=== PATIENT | male | born 1950 | race Caucasian/White ===

== ENCOUNTER → 2020-04-22 08:52 | Outpatient (CLI) | payer MEDICARE, SELFPAY ==
--- NOTE | ~2020-04-22 | XR_ITS ---
EXAMINATION: XR lumbar spine 2-3V DATE: 04/22/2020 09:29 INDICATION: Lumbar radiculopathy. TECHNIQUE: 3 views of lumbar spine were obtained. COMPARISON: Lumbar spine radiographs 02/13/2018 FINDINGS: There is 4 degrees dextrocurvature of lumbar spine. There is 3 mm anterolisthesis of L5 on S1. Vertebral body heights are normal. There is mildly decreased disc height at L2-L3. There is multi level mild facet joint osteoarthritis. IMPRESSION: 1. Mild lumbar spondylosis. Reviewed, dictated and finalized at location A. IMPRESSION: 1. Mild lumbar spondylosis.
== END ==
PROVIDERS: PCP Family Medicine; Visit Provider Physician Assistant
DX: M47.26 Other spondylosis with radiculopathy, lumbar region (principal)
CPT/HCPCS: 72100

== ENCOUNTER 2020-09-22 11:24 | Observation (INO) | payer MEDICARE, SELFPAY ==
[2020-09-22] VITALS (20 sets, daily range): BP systolic 124–182; BP diastolic 56–92; PULSE 68–92; RESP 12–20; TEMP 36.1–37.2; O2SAT 96–100; BMI 33.1
--- NOTE | ~2020-09-22 | XR_ITS ---
EXAMINATION: XR ankle RT min 3V INDICATION: Right ankle pain, initial encounter TECHNIQUE: Three views of the right ankle are obtained. COMPARISON: None available FINDINGS: There is an acute, traumatic, closed, oblique fracture of the distal fibula which extends t o the level of the tibial plafond. There is a fracture of the posterior malleolus of the distal tibia . There is dorsal subluxation of the talus relative to the distal tibia. Ankle soft tissue swelling i s present. There is calcified atherosclerosis. IMPRESSION: 1. Fractures of the medial malleolus and posterior malleolus of the tibia with dorsal subluxation of the talus relative to the distal tibia. Reviewed, dictated and finalized at location A. CH STRATEGIST
--- NOTE | ~2020-09-22 | XR_ITS ---
XR ankle RT 2V DATE: 09/22/2020 12:59 INDICATION: Postoperative reduction examination TECHNIQUE: 2 views COMPARISON: 09/22/2020 right ankle FINDINGS: There is a trimalleolar fracture of the ankle. The posterior subluxation at the tibiotalar joint is reduced. There is approximately 2 mm superior displacement of the posterior malleolar fracture fragment. There is approximately 1-2 cortical widths posterior displacement at the lateral malleolar fracture. There is approximately 2 mm lateral displacement at the medial malleolar fracture. IMPRESSION: Trimalleolar fracture; reduction of posterior subluxation at tibiotalar joint Reviewed, dictated and finalized at location B. OISOTOPE PRODUCTION OPERATOR IMPRESSION: Trimalleolar fracture; reduction of posterior subluxation at tibiot alar joint
--- NOTE | ~2020-09-22 | XR_ITS ---
EXAMINATION: XR surgery orthopedic EXAM DATE: 09/22/2020 19:52 INDICATION: ORIF right ankle fracture. TECHNIQUE: Fluoroscopy used during XR surgery orthopedic performed by Dr. Joseph Camargo MD. The DAP for this procedure was 0.12 mGym2. FINDINGS: There is a fibular plate bridging a fracture in anatomic alignment. There is a medial mall eolar screw. Mortise relationship appears intact. Correlate with procedure note. IMPRESSION: Fluoroscopy used during right ankle ORIF. Reviewed, dictated and finalized at location G. L CANS SUPERVISOR
--- NOTE | ~2020-09-22 | XR_ITS ---
EXAMINATION: XR chest 1V portable INDICATION: Hypertension TECHNIQUE: Portable AP chest at 1336 hours COMPARISON: 05/30/2009 FINDINGS: The lungs are free of acute opacities. There is no pleural effusion or pneumothorax. The ca rdiomediastinal silhouette is normal. IMPRESSION: 1. No acute cardiopulmonary abnormality. Reviewed, dictated and finalized at location A. L PRESS SET UP OPERATOR RADIAL
--- NOTE | ~2020-09-22 | CT_ITS ---
EXAMINATION: CT ankle RT wo con DATE: 09/22/2020 13:48 INDICATION: Right ankle fracture and pain TECHNIQUE: Computed tomography (CT) of the right ankle was performed without intravenous contrast. Th e dose-length product (DLP) was 431.83 mGy-cm. Automated exposure control and iterative reconstructio n technique were employed. COMPARISON: None FINDINGS: There is a mildly comminuted oblique fracture of the distal fibula which extends to the lev el of the tibial plafond and. There are 4 mm of posterior displacement of the largest distal fracture fragment. There is a transverse fracture of the medial malleolus at the level of the tibial plafond and with up to 3 mm of distraction of the fracture fragment. There is a comminuted posterior malleolu s fracture of the distal tibia. A posterior splint is in place and alignment is near-anatomic. There is soft tissue swelling of ankle. No additional acute osseous findings are evident. Calcified atheros clerosis is noted. IMPRESSION: 1. Trimalleolar fracture, splinted and reduced. Reviewed, dictated and finalized at location A. IN[employer] WORKER
--- NOTE | 2020-09-22 11:34 | ED.GENADULT ---
HPI - General Adult General Chief complaint: Extremity Injury, Lower Stated complaint: Ankle deformity Source: patient Mode of arrival: EMS History of Present Illness HPI narrative: Patient is a 70 y/o male complaining of right ankle pain after a fall. He states that he had snow on his boots and slipped inside an RV. He describes his pain as sharp and rates it as 3/10. Movement worsens the pain. There is no pain radiation. He denies hitting his head or having any other injury. He has no headache, neck pain, back pain, chest pain or abdominal pain. Related Data Home Medications Medication Instructions Recorded Confirmed aspirin 81 mg tablet,delayed 81 mg PO DAILY 07/16/19 09/22/20 release sildenafil 25 mg tablet 25 mg PO DAILY 07/16/19 09/22/20 insulin lispro 100 unit/mL 1 sliding scale dose SUB-Q 01/25/20 07/01/20 subcutaneous solution USEASDIRECTD loratadine 10 mg tablet 10 mg PO DAILY 01/25/20 09/22/20 multivitamin 1 tablet PO DAILY 01/25/20 09/22/20 fenofibrate 160 mg tablet 160 mg PO DAILY 07/01/20 09/22/20 levothyroxine 50 mcg PO DAILY 09/22/20 09/22/20 lisinopril 40 mg PO DAILY 09/22/20 09/22/20 Allergies Allergy/AdvReac Type Severity Reaction Status Date / Time codeine Allergy Severe ANAPHALACTI Verified 09/22/20 14:39 C levofloxacin Allergy Severe ITCHING, Verified 09/22/20 14:39 THROAT CLOSING Tetanus Vaccines and Toxoid Allergy Intermediate Swelling Verified 09/22/20 14:39 TOBREX EYE DROP Allergy Unknown REDNESS, Uncoded 09/22/20 14:39 IRRITATION Review of Systems Constitutional: Constitutional: Denies chills, Denies fever(s), Denies headache(s) and Denies weakness Eyes: Eyes: Denies blurry vision ENT: Denies headache(s) and Denies neck pain Cardiovascular: Cardiovascular: Denies chest pain and Denies dyspnea Respiratory: Respiratory: Denies cough and Denies dyspnea Gastrointestinal: Gastrointestinal: Denies abdominal pain, Denies diarrhea, Denies nausea and Denies vomiting Genitourinary: Genitourinary: Denies hematuria and Denies dysuria Musculoskeletal: Musculoskeletal: Denies back pain, Reports arthralgias (right ankle pain) and Denies neck pain Neurologic: Denies headache(s) and Denies weakness [facility] Past Medical History Medical History Alcohol use 2 drinks/month Arthritis Back pain Diabetes Former smoker HLD (hyperlipidemia) Hypoglycemia Hypothyroid Insulin pump in place Type 2 diabetes mellitus with diabetic autonomic neuropathy, with long-term current use of insulin UTI (urinary tract infection) Surgical History Surgical History H/O vasectomy History of appendectomy History of tonsillectomy Family History Family History Father Diabetes mellitus Hypertension Family history of cardiovascular disease Malignant neoplasm of prostate Mother Hypertension Family history of kidney disease Grandparent Malignant neoplasm of prostate Other Family history of elevated blood lipids Family history of malignant neoplasm of kidney Social History Social History Smoking status: Former smoker Alcohol intake: current Gender identity (if verbalized by the patient): Male Exam Const: General: no acute distress and well developed Orientation/consciousness: oriented to person, oriented to place, oriented to time and patient oriented x3 HENMT: Head: normocephalic Ears: external ears normal General nose exam: Normal external nose present Eyes: General: appearance normal, both eyes and all related structures Conjunctivae: conjunctivae normal Neck: Neck: normal visual inspection and full ROM Chest: Chest palpation & inspection: normal inspection of the chest and no tenderness Resp: Effort & Inspection: normal respiratory effort
[2020-09-22] MEDS: PROPOFOL IV EMULSION 200 MG/20 ML VIAL (12:41)
--- NOTE | 2020-09-22 12:41 | PC.NURSE ---
Pt given 50 Propofol at 1241 per EDP at bedside VORB Dr Angelo.
[2020-09-22] MEDS: SODIUM CHLORIDE 0.9% IV 1,000 ML 999 ML (12:49)
--- NOTE | 2020-09-22 13:22 | ECG_ITS ---
Measurements Intervals [place] Rate: 65 P: 50 NH: 159 QRS: -18 QRSD: 146 T: 17 QT: 420 QTc: 437 Interpretive Statements SINUS RHYTHM RIGHT BUNDLE BRANCH BLOCK ABNORMAL ECG Electronically Signed On 09-22-2020 14:15:19 CONSTRUCTION PIT WORKER by Henrique Meehan D.O.
--- NOTE | 2020-09-22 14:03 | WPDANESEPP ---
Anes - Eval Pre Procedure Procedure: Operation Date: 09/22/20 15:00 Proposed Procedures p Open Reduction Internal Fixation Right Ankle Fracture - Joseph Camargo MD Date/Time: 09/22/20 14:03 Pre Op Diagnosis: Ankle deformity Patient Data Age: 70 Gender: M Height: 1.75 m Weight: 97 kg Last Vital Signs Temp 36.4 C L 09/22/20 11:23 Pulse 78 09/22/20 13:54 Resp 13 09/22/20 13:54 BP 174/75 H 09/22/20 13:54 Pulse Ox 99 09/22/20 13:54 Allergies Allergy/AdvReac Type Severity Reaction Status Date / Time codeine Allergy Severe ANAPHALACTI Verified 09/22/20 11:46 C levofloxacin Allergy Severe ITCHING, Verified 09/22/20 11:46 THROAT CLOSING Tetanus Vaccines and Toxoid Allergy Unknown Unknown Verified 09/22/20 11:46 TOBREX EYE DROP Allergy Unknown REDNESS, Uncoded 09/22/20 11:46 IRRITATION Home Medications Medication Instructions Recorded Confirmed Type aspirin 81 mg tablet,delayed 81 mg PO DAILY 07/16/19 07/01/20 History release sildenafil 25 mg tablet 25 mg PO DAILY 07/16/19 07/01/20 History insulin lispro 100 unit/mL 1 sliding scale dose SUB-Q 01/25/20 07/01/20 History subcutaneous solution USEASDIRECTD loratadine 10 mg tablet 10 mg PO DAILY 01/25/20 07/01/20 History multivitamin 1 tablet PO DAILY 01/25/20 07/01/20 History rosuvastatin 20 mg tablet 20 mg PO DAILY #90 tablet 01/25/20 07/01/20 Rx naproxen 500 mg tablet 500 mg PO BID #60 tablet 04/21/20 07/01/20 Rx levothyroxine 50 mcg tablet See Rx Instructions .ROUTE 06/19/20 07/01/20 Rx .COMPLEX #90 tablet lisinopril 40 mg tablet See Rx Instructions .ROUTE 06/19/20 07/01/20 Rx .COMPLEX #90 tablet triamterene 37.5 See Rx Instructions .ROUTE 06/19/20 07/01/20 Rx mg-hydrochlorothiazide 25 mg tablet .COMPLEX #90 tablet fenofibrate 160 mg tablet 160 mg PO DAILY 11/24/20 11/24/20 History Patient hx anesthesia problems: none Family hx anesthesia problems: none [facility] Past Medical History Medical History Alcohol use 2 drinks/month Arthritis Back pain Diabetes Former smoker HLD (hyperlipidemia) Hypoglycemia Hypothyroid Insulin pump in place Type 2 diabetes mellitus with diabetic autonomic neuropathy, with long-term current use of insulin UTI (urinary tract infection) Surgical History Surgical History H/O vasectomy History of appendectomy History of tonsillectomy Family History Family History Father Diabetes mellitus Hypertension Family history of cardiovascular disease Malignant neoplasm of prostate Mother Hypertension Family history of kidney disease Grandparent Malignant neoplasm of prostate Other Family history of elevated blood lipids Family history of malignant neoplasm of kidney Social History Social History Smoking status: Former smoker Alcohol intake: current Exam Day of Procedure 09/22/20 14:03
--- NOTE | 2020-09-22 14:08 | PC.NURSE ---
Speaking with OR about this patient
[2020-09-22 14:13] LABS: Basophils Percent Auto 0.3 % (0.2-1.2); Eosinophils Absolute Auto 0.1 K/mm3 (0-0.3); Eosinophils Percent Auto 0.8 % (0-4.4); Hematocrit 43.3 % (42.0-52.0); Hemoglobin 14.5 g/dL (14.0-18.0); Immature Granulocyte Absolute 0.02 K/mm3 (0.00-0.031); Immature Granulocyte Percent A 0.2 % (0-0.5); Lymphocytes Absolute Auto 1.35 K/mm3 (0.9-3.2); Mean Corpuscular HGB Conc 33.5 g/dl (32-36); Mean Corpuscular Hemoglobin 29.7 pg (26-34); Mean Corpuscular Volume 88.5 fl (80-100); Mean Platelet Volume 9.2 fl (7.4-10.4); Monocytes Absolute Auto 0.6 K/mm3 (0.1-0.6); Monocytes Percent Auto 6.2 % (2.6-8.5); Neutrophils Percent Auto 77.5 % (45.5-73.1); Platelet Count Result 214 k/mm3 (150-375); Red Blood Count 4.89 M/mm3 (4.6-6.20); Red Cell Distribution Width 13.7 % (11.5-14.5)
[2020-09-22 14:23] LABS: Prothrombin Time 13.4 Seconds (11.1-14.7)
[2020-09-22 14:24] LABS: Partial Thromboplastin Time 29.5 SECONDS (22.3-36.8)
[2020-09-22 14:25] LABS: Alanine Aminotransferase 52 U/L (4-50); Albumin Level 4.2 g/dL (3.5-5.1); Alkaline Phosphatase 53 U/L (38-126); Anion Gap 4 mmol/L (8-16); Aspartate Amino Transferase 47 U/L (17-59); Bilirubin,Total 0.7 mg/dL (0.2-1.3); Blood Urea Nitrogen 34 mg/dL (9-20); Calcium 9.4 mg/dL (8.4-10.2); Carbon Dioxide 29 mmol/L (22-30); Chloride 107 mmol/L (98-107); Estimated CRCL calculation 66 ml/min; Estimated Glomerular Filt Rate > 60; Glucose 80 mg/dL (75-110); Potassium 3.9 mmol/L (3.4-5.0); Sodium 140 mmol/L (137-145)
[2020-09-22] MEDS: LACTATED RINGERS 1,000 ML 30 ML IV CONT ×2 (14:56→20:10)
--- NOTE | 2020-09-22 16:35 | P.PNAN_ITS ---
Anes - Eval Final PreProcedure Day of Procedure 09/22/20 16:35 Patient weight: obese Heart: regular rate and rhythm Lungs: clear to auscultation and normal air movement Airway: Mallampati scale class II Neurological: alert and oriented Last oral intake: >/= 8 hours ASA classification: III Emergent: no Anesthetic plan: proceed Anesthesia type and monitoring: general LMA Informed Consent: The patient's anesthetic plan and its attendant risks and be nefits were discussed with the patient/family/POA. Questions were solicited and answers provided to the satisfaction of the patient/family/POA.
--- NOTE | 2020-09-22 17:11 | WPDHPUPDATE1 ---
History and Physical Update Update Date/Time: 09/22/20 17:11 History and Physical has been reviewed, including an updated exam of the patient. There are NO changes in the patient's condition. Risks, benefits, and alternatives have been discussed and questions answered. Patient agrees to proceed with procedure.
--- NOTE | 2020-09-22 17:11 | PM.IMHP ---
H&P: HPI History of Present Illness Date/Time: 09/22/20 17:11 Chief Complaint: Right trimalleolar ankle fracture dislocation Narrative: Joseph Drummond is a 70 year old male [facility] Past Medical History Medical History Alcohol use 2 drinks/month Arthritis Back pain Diabetes Former smoker HLD (hyperlipidemia) Hypoglycemia Hypothyroid Insulin pump in place Type 2 diabetes mellitus with diabetic autonomic neuropathy, with long-term current use of insulin UTI (urinary tract infection) Surgical History Surgical History H/O vasectomy History of appendectomy History of tonsillectomy Family History Family History Father Diabetes mellitus Hypertension Family history of cardiovascular disease Malignant neoplasm of prostate Mother Hypertension Family history of kidney disease Grandparent Malignant neoplasm of prostate Other Family history of elevated blood lipids Family history of malignant neoplasm of kidney Social History Social History Smoking status: Former smoker Alcohol intake: current Gender identity (if verbalized by the patient): Male Meds Home Medications and Allergies Home Medications Medication Instructions Recorded Confirmed Type aspirin 81 mg tablet,delayed 81 mg PO DAILY 07/16/19 09/22/20 History release sildenafil 25 mg tablet 25 mg PO DAILY 07/16/19 09/22/20 History insulin lispro 100 unit/mL 1 sliding scale dose SUB-Q 01/25/20 07/01/20 History subcutaneous solution USEASDIRECTD loratadine 10 mg tablet 10 mg PO DAILY 01/25/20 09/22/20 History multivitamin 1 tablet PO DAILY 01/25/20 09/22/20 History rosuvastatin 20 mg tablet 20 mg PO DAILY #90 tablet 01/25/20 09/22/20 Rx naproxen 500 mg tablet 500 mg PO BID #60 tablet 04/21/20 09/22/20 Rx triamterene 37.5 See Rx Instructions .ROUTE 06/19/20 09/22/20 Rx mg-hydrochlorothiazide 25 mg tablet .COMPLEX #90 tablet fenofibrate 160 mg tablet 160 mg PO DAILY 07/01/20 09/22/20 History levothyroxine 50 mcg PO DAILY 09/22/20 09/22/20 History lisinopril 40 mg PO DAILY 09/22/20 09/22/20 History Allergies Allergy/AdvReac Type Severity Reaction Status Date / Time codeine Allergy Severe ANAPHALACTI Verified 09/22/20 14:39 C levofloxacin Allergy Severe ITCHING, Verified 09/22/20 14:39 THROAT CLOSING Tetanus Vaccines and Toxoid Allergy Intermediate Swelling Verified 09/22/20 14:39 TOBREX EYE DROP Allergy Unknown REDNESS, Uncoded 09/22/20 14:39 IRRITATION Vital Signs Vital Signs - 24 hr 09/22/20 11:23 09/22/20 11:51 09/22/20 12:35 Temperature 36.4 C L Pulse Rate 73 Pulse Rate [Monitor] 72 Respiratory Rate 16 18 12 Blood Pressure 166/69 H Blood Pressure [Right Arm] 163/92 H Pulse Oximetry 98 96 09/22/20 12:41 09/22/20 12:46 09/22/20 12:51 Temperature Pulse Rate Pulse Rate [Monitor] 68 75 71 Respiratory Rate 12 14 15 Blood Pressure Blood Pressure [Right Arm] 169/78 H 159/68 H 145/72 H Pulse Oximetry 97 97 98 09/22/20 13:01 09/22/20 13:06 09/22/20 13:21 Temperature Pulse Rate Pulse Rate [Monitor] 69 73 68 Respiratory Rate 13 15 13 Blood Pressure Blood Pressure [Right Arm] 159/79 H 166/84 H 174/75 H Pulse Oximetry 98 98 98 09/22/20 13:54 09/22/20 14:18 09/22/20 14:25 Temperature 37.0 C Pulse Rate 78 78 74 Pulse Rate [Monitor] Respiratory Rate 13 18 16 Blood Pressure 174/75 H 165/82 H 182/77 H Blood Pressure [Right Arm] Pulse Oximetry 99 99 99 H&P: Results Labs Labs: Short CBC 09/22/20 Range/Units 14:07 WBC 9.0 (4.5-10.0) K/mm3 Hgb 14.5 (14.0-18.0) g/dL Hct 43.3 (42.0-52.0) % Plt Count 214 (150-375) k/mm3 BMP 09/22/20 14:07 Sodium 140 Potassium 3.9 Chloride 107 Carbon Dioxide 29 BUN
[2020-09-22 17:28] LABS: Glucose Point of Care 102 (65-105)
--- NOTE | 2020-09-22 17:31 | WPDHPUPDATE1 ---
History and Physical Update Update Date/Time: 09/22/20 17:31 History and Physical has been reviewed, including an updated exam of the patient. There are NO changes in the patient's condition. Risks, benefits, and alternatives have been discussed and questions answered. Patient agrees to proceed with procedure.
[2020-09-22] MEDS: ceFAZolin 2 GM/D5W 50 ML 2 GM/50 ML BAG IVPB (17:53)
[2020-09-22] MEDS: ceFAZolin SODIUM 1 GM VIAL IRRIGATION (18:28)
[2020-09-22 18:37] LABS: Hemoglobin A1C 6.7 % (<5.7)
[2020-09-22] MEDS: KETOROLAC 30 MG/ML VIAL (*BKC) IV PUSH (19:37)
[2020-09-22] MEDS: ceFAZolin SODIUM 1 GM VIAL IV PUSH (19:39)
--- NOTE | 2020-09-22 20:18 | PM.PROC ---
Procedure Note - Detailed Date of procedure: 09/22/20 Pre-op diagnosis: Ankle deformity Right ankle trimalleolar ankle fracture dislocation. Post-op diagnosis: same Procedure performed: Open reduction internal fixation right trimalleolar ankle fracture without fixation of posterior lip of tibia Description of procedure: Patient brought to the operating room and general anesthesia was administered. The right ankle was prepped draped in usual fashion after scrubbing the ankle thoroughly with chlorhexidine cloth Jason cloth and positioning the patient a bump under the right hip roll and the right knee and the leg prepped with DuraPrep. All the skin was covered with Ioban. A 4 in incision was made centered over the lateral malleolus fracture. We looked for but did not visualize the superficial branch of peroneal nerve. The fracture was comminuted but not segmental comminution and allowed an anatomic reduction. Prior to reduction we allowed the ankle to sublux in external rotation posterior subluxations of the we could try to access the posterior malleolus fracture site. The CT scan showed some intercalary impaction of the small area of subchondral bone between the posterior lip the posterior malleolus the rest the tibial plafond. I used a [place] elevator to try to disimpact these fragments using head lamp for lumen a mccain. The impaction was more to the medial side the posterior distal tibia making this a little difficult to get the impacted fragments in perfect position especially since he required displacement to access this area. We then reduced the of his fibular fracture held with 2 towel clamps and placed a 2.7 mm inter fragmentary screw through an anterior gliding hole which gave us anatomic reduction. We took a lateral x-ray view and showed that the posterior malleolus was close to anatomic with still some impaction of the small punch fragment. I felt this was acceptable and I did not feel that a posterior medial approach to the ankle to disimpact this tiny fragment would provide benefit that would outweigh the risk of the additional surgical trauma. A 7 hole 1/3 tubular locking plate from the Arthrex set plate was carefully contoured and applied so that we would have 3 screws in the shaft and 3 screws in the distal fragment. A cortical screw was placed in the lag mode initially just proximal the fracture sucking the plate down to the bone and this maintained anatomic reduction and plate had excellent contact with the bone. We placed 3 locking screws in the distal fragment a locking screw in the 2nd from proximal hole and a cortical screw in the proximal hole. This gave anatomic reduction of the mortise. The anterior colliculus fracture remain mildly displaced. We approach that through a 2 in longitudinal incision. The saphenous vein and nerve for right underneath the incision and protected mobilizing these anteriorly. The anterior colliculus was anatomically reduced held with a compression towel clip style clamp and a guidewire inserted perpendicular to the fracture through the anterior colliculus which was over drilled and a 38 mm longer 4.0 cancellous screw was placed which obtained excellent interfragmentary compression and purchase. Final fluoroscopic images were taken. The tourniquet was released at 87 minutes. Hemostasis was obtained. Skin was closed with 3 0 Vicryl suture and glue on both sides and a soft bulky dressing was applied with posterior splint patient transferred postop recovery in good condition. No known complications. Implants: Arthrex plate screws and Synthes 2.7 mm screw Anesthesia: GLMA Surgeon: Joseph Camargo MD Dental Technician Metal: [place] Estimated blood loss (mL): 10 Tourniquet time (min): 87 Drains: No Packing: No Pathology: none sent Complications: No immediate complications Condition: stable Disposition: PACU
[2020-09-22 20:33] LABS: Glucose Point of Care 189 (65-105)
[2020-09-22] MEDS: fentaNYL CITRATE INJ (*CRX) 100 MCG/2 ML VIAL 25 MCG IV PUSH (21:12)
[2020-09-22] MEDS: ACETAMINOPHEN 500 MG TABLET 1000 MG PO (21:52)
--- NOTE | 2020-09-22 22:40 | PC.NURSE ---
This patient, Joseph Drummond, was admitted to Medical Room 244-. Patient/family oriented to hospital policies and general routines including ID bracelet, bed and alarms, visiting hours, pain management, procedures, bathroom and other care routines, personal items, smoking policy, room service/diet, and visiting hours. Information on how to activate the Rapid Response Team has been discussed. Patient/Family are encouraged to report perceived risks to care and to ask questions if they do not understand what they are told or what they should do.
--- NOTE | 2020-09-22 23:42 | PM.IMHP ---
H&P: HPI History of Present Illness Date/Time: 09/22/20 23:42 Chief Complaint: Right ankle pain Narrative: Joseph Drummond is a 70 year old male Who slipped on the snow twisting his ankle and sustained a trimalleolar fracture and dislocation of his right ankle he presented to the emergency room today. The patient was cleaning out his camper when he stood up he slid on some ice and twisted his ankle. He immediately took his boot off. The patient had been wearing some snow boots any slid inside of his RVP when he stood up. The patient was not able to bear weight on that right ankle. His pain was 3/10. He does have some neuropathy and sciatica as well Prior to the fall the patient was getting treated for his neuropathy and sciatica. Patient took his insulin pump look at what they get by with here off prior to surgery. patient's blood sugar was in the lower 100s when he went to surgery. Ortho has been consulted and took the patient to surgery please see the surgical report for Dr. Joseph Camargo. the patient currently is not having any discomfort. The patient is being admitted to observation on the date of service of 09/22/2019 or Review of Systems Review of Systems: All systems reviewed & are unremarkable except as noted in HPI and below Constitutional: Constitutional: Reports as per HPI and Reports no additional constitutional complaints Eyes: Eyes: Reports as per HPI and Reports no additional eye complaints ENT: Reports system reviewed and no additional complaints, except as documented and Reports Normal hearing present Cardiovascular: Cardiovascular: Reports no additional cardiovascular complaints Respiratory: Respiratory: Reports no additional respiratory complaints and Reports no additional respiratory complaints Gastrointestinal: Gastrointestinal: Reports as per HPI and Reports no additional gastrointestinal complaints Musculoskeletal: Musculoskeletal: Reports no additional musculoskeletal complaints Integumentary/Breasts: Skin/Breast: Reports system reviewed and no additional complaints, except as docu and Reports as per HPI Neurologic: Reports system reviewed and no additional complaints, except as documented, Reports as per HPI and Reports Normal hearing present Psychiatric: Psychiatric: Reports no additional psychiatric complaints and Reports as per HPI Endocrine: Endocrine: Reports no additional endocrine complaints Hematologic/Lymphatic: Hematologic/Lymphatic: Reports no additional hematologic/lymphatic complaints Allergic/Immunologic: Allergic/Immunologic: Reports no additional allergic/immunologic complaints [facility] Past Medical History Medical History (Updated 09/23/20 @ 00:06 by Garima Guidry NP) Alcohol use 2 drinks/month Arthritis Back pain Diabetes Former smoker HLD (hyperlipidemia) Hypoglycemia Hypothyroid Insulin pump in place S/P ORIF (open reduction internal fixation) fracture right ankle Type 2 diabetes mellitus with diabetic autonomic neuropathy, with long-term current use of insulin UTI (urinary tract infection) Surgical History Surgical History (Updated 09/23/20 @ 00:02 by Garima Guidry NP) H/O vasectomy History of appendectomy History of tonsillectomy S/P LASIK surgery Family History Family History Father Diabetes mellitus Hypertension Family history of cardiovascular disease Malignant neoplasm of prostate Mother Hypertension Family history of kidney disease Grandparent Malignant neoplasm of prostate Other Family history of elevated blood lipids Family history of malignant neoplasm of kidney Social History Social History (Updated 09/23/20 @ 00:00 by Garima Guidry NP) Social History: the patient stated that he smoked from the age of [age]. The patient stated he quit drinking at that time as well. The patient had several jobs. 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 He lives with his wif
[2020-09-23 00:17] LABS: Glucose Point of Care 252 (65-105)
[2020-09-23 03:03] VITALS: BP 134/55; PULSE 81; RESP 18; TEMP 36.6; O2SAT 96
[2020-09-23] MEDS: ACETAMINOPHEN 500 MG TABLET 1000 MG PO ×4 (03:11→21:19)
--- NOTE | 2020-09-23 07:02 | PM.PNORT ---
Progress Note: A&P Additional Plan POD 1 alert ,pain controlled with tylenol, wiggles toes splint intact, pt will be bed to chair only, must keep leg elevated with foot above heart to prevent swelling, can be discharged when doing well with PT and no med issues Subjective Subjective Date/Time Seen: 09/23/20 07:02 Objective Data Vital Signs Vital Signs: Vital Signs - 24 hr 09/22/20 11:23 09/22/20 11:51 09/22/20 12:35 Temperature 36.4 C L Pulse Rate 73 Pulse Rate [Monitor] 72 Respiratory Rate 16 18 12 Blood Pressure 166/69 H Blood Pressure [Right Arm] 163/92 H Pulse Oximetry 98 96 09/22/20 12:41 09/22/20 12:46 09/22/20 12:51 Temperature Pulse Rate Pulse Rate [Monitor] 68 75 71 Respiratory Rate 12 14 15 Blood Pressure Blood Pressure [Right Arm] 169/78 H 159/68 H 145/72 H Pulse Oximetry 97 97 98 09/22/20 13:01 09/22/20 13:06 09/22/20 13:21 Temperature Pulse Rate Pulse Rate [Monitor] 69 73 68 Respiratory Rate 13 15 13 Blood Pressure Blood Pressure [Right Arm] 159/79 H 166/84 H 174/75 H Pulse Oximetry 98 98 98 09/22/20 13:54 09/22/20 14:18 09/22/20 14:25 Temperature 37.0 C Pulse Rate 78 78 74 Pulse Rate [Monitor] Respiratory Rate 13 18 16 Blood Pressure 174/75 H 165/82 H 182/77 H Blood Pressure [Right Arm] Pulse Oximetry 99 99 99 09/22/20 20:10 09/22/20 20:25 09/22/20 20:40 Temperature 37.2 C Pulse Rate 84 77 79 Pulse Rate [Monitor] Respiratory Rate 12 12 12 Blood Pressure 153/66 H 124/56 L 140/64 Blood Pressure [Right Arm] Pulse Oximetry 99 100 100 09/22/20 20:55 09/22/20 21:08 09/22/20 21:29 Temperature 36.6 C 36.3 C L Pulse Rate 78 92 81 Pulse Rate [Monitor] Respiratory Rate 18 18 20 Blood Pressure 160/78 H 159/76 H 147/65 H Blood Pressure [Right Arm] Pulse Oximetry 98 98 96 09/22/20 22:03 09/22/20 23:03 09/23/20 03:03 Temperature 36.3 C L 36.1 C L 36.6 C Pulse Rate 74 73 81 Pulse Rate [Monitor] Respiratory Rate 20 20 18 Blood Pressure 139/58 L 156/69 H 134/55 L Blood Pressure [Right Arm] Pulse Oximetry 97 96 96 Intake/Output Intake/Output: Intake & Output 09/20/20 09/21/20 09/22/20 09/23/20 23:59 23:59 23:59 23:59 Intake Total 1600 690 Output Total 100 1000 Balance 1500 -310 Meds/Results Medications: Active Medications Generic Name Dose Route Start Last Admin Trade Name Freq PRN Reason Stop Dose Admin Acetaminophen 1,000 mg 09/22/20 21:18 09/23/20 03:11 Acetaminophen 500 Mg Tablet PO 1,000 mg Q6H SANDEEP Administration Aspirin 81 mg 09/23/20 09:00 Aspirin 81 Mg Chewable Tablet PO BID SANDEEP Aspirin 81 mg 09/23/20 09:00 Aspirin 81 Mg Enteric Tablet PO DAILY SANDEEP Dextrose 12.5 gm 09/22/20 23:37 Dextrose 50% 25 Gm/50 Ml Syringe IV PUSH PRN PRN Hypoglycemia Protocol Fenofibrate 160 mg 09/23/20 09:00 Fenofibrate 160 Mg Tablet PO DAILY SANDEEP Glucagon 1 mg 09/22/20 23:37 Glucagon For Inj 1 Mg Vial IM PRN PRN Hypoglycemia Protocol Glucose 15 gm 09/22/20 23:37 Glucose Oral Gel 15 Gm Of Glucse In 37.5 Gm Tube PO PRN PRN Hypoglycemia Protocol Cefazolin Sodium 1 gm in 50 mls @ 100 mls/hr 09/23/20 00:00 09/23/20 00:36 Ancef 1 Gm/D5w 50 Ml Pm IVPB 09/23/20 16:29 Infused Q8H SANDEEP Infusion Dextrose/Sodium Chloride 1,000 mls @ 100 mls/hr 09/22/20 21:18 Dextrose 5% Sodium Chloride 0.45% IV CONT .Q10H SANDEEP Vancomycin HCl 1,000 mg in 250 mls @ 250 mls/hr 09/23/20 04:00 09/23/20 04:27 Vancomycin 1,000 Mg/D5w 250 Ml IVPB 09/23/20 16:59 Infused Q12H SANDEEP Infusion Dextrose 1,000 mls @ 100 mls/hr 09/22/20 23:37 Dextrose 5% 1,000 Ml IVPB PRN PRN Hypoglycemia Protocol Insulin Aspart 2 - 5 units 09/23/20 08:00 Insulin Aspart (*Bkc) 100 Units/Ml SUB-Q TIDWM SANDEEP Protocol Levothyroxine Sodium 50 mcg 09/23/20 06:30 Levothyroxine Sodium 50 M
[2020-09-23] MEDS: TRIAMTERENE 37.5 MG/HCTZ 25 MG (MAXZIDE) TABLET 1 TAB BY MOUTH (08:24)
[2020-09-23] MEDS: ROSUVASTATIN 10 MG TABLET 20 MG PO (08:27)
[2020-09-23] MEDS: FENOFIBRATE 160 MG TABLET PO (08:27)
[2020-09-23] MEDS: lisinopriL 20 MG TABLET 40 MG PO (08:27)
[2020-09-23] MEDS: LEVOTHYROXINE SODIUM 50 MCG TABLET PO (08:27)
[2020-09-23] MEDS: LORATADINE 10 MG TABLET PO (08:28)
[2020-09-23] MEDS: ASPIRIN 81 MG CHEWABLE TABLET PO ×2 (08:28→17:18)
[2020-09-23] MEDS: SENNA/DOCUSATE SODIUM TABLET 2 TAB PO ×2 (08:28→17:18)
[2020-09-23] MEDS: MULTIVITAMINS THERAPEUTIC TAB (*BKC) 1 TABLET PO (08:28)
--- NOTE | 2020-09-23 08:36 | WPDANESPN ---
Anes - Prog Note Post-Op Date/Time: 09/23/20 08:36 Cardiovascular status: normal Respiratory status: normal Airway patency: baseline Mental status: baseline Post-Op hydration status: normal Vital Signs: Last Vital Signs Temp 36.6 C 09/23/20 03:03 Pulse 81 09/23/20 03:03 Resp 18 09/23/20 03:03 BP 134/55 L 09/23/20 03:03 Pulse Ox 96 09/23/20 03:03 Pain Score (VAS): 4 I/O: Intake & Output 09/22/20 09/23/20 09/23/20 23:59 07:59 15:59 Intake Total 600 690 Output Total 100 1000 Balance 500 -310 Laboratory Tests 09/22/20 14:07 09/22/20 14:07 09/22/20 09/22/20 09/22/20 14:07 14:07 14:07 WBC 9.0 RBC 4.89 Hgb 14.5 Hct 43.3 MCV 88.5 MCH 29.7 MCHC 33.5 RDW 13.7 Plt Count 214 MPV 9.2 Immature Gran % (Auto) 0.2 Neut % (Auto) 77.5 H Lymph % (Auto) 15.0 L [place] % (Auto) 6.2 Eos % (Auto) 0.8 Baso % (Auto) 0.3 Lymph # (Auto) 1.35 [place] # (Auto) 0.6 Eos # (Auto) 0.1 Baso # (Auto) 0.0 Abs Immat Gran (auto) 0.02 Absolute Neuts (auto) 7.0 H Absolute Nucleated RBC 0.0 Nucleated RBC % 0.0 PT INR APTT Sodium 140 Potassium 3.9 Chloride 107 Carbon Dioxide 29 Anion Gap 4 L BUN 34 H Creatinine 1.10 Estim Creat Clear Calc 66 Estimated GFR > 60 Glucose 80 POC Capillary Glucose Hemoglobin A1c 6.7 H Calcium 9.4 Total Bilirubin 0.7 AST 47 ALT 52 H Alkaline Phosphatase 53 Total Protein 7.0 Albumin 4.2 09/22/20 09/22/20 09/22/20 14:07 17:26 20:31 WBC RBC Hgb Hct MCV MCH MCHC RDW Plt Count MPV Immature Gran % (Auto) Neut % (Auto) Lymph % (Auto) [place] % (Auto) Eos % (Auto) Baso % (Auto) Lymph # (Auto) [place] # (Auto) Eos # (Auto) Baso # (Auto) Abs Immat Gran (auto) Absolute Neuts (auto) Absolute Nucleated RBC Nucleated RBC % PT 13.4 INR 1.0 APTT 29.5 Sodium Potassium Chloride Carbon Dioxide Anion Gap BUN Creatinine Estim Creat Clear Calc Estimated GFR Glucose POC Capillary Glucose 102 189 H Hemoglobin A1c Calcium Total Bilirubin AST ALT Alkaline Phosphatase Total Protein Albumin 09/23/20 00:11 WBC RBC Hgb Hct MCV MCH MCHC RDW Plt Count MPV Immature Gran % (Auto) Neut % (Auto) Lymph % (Auto) [place] % (Auto) Eos % (Auto) Baso % (Auto) Lymph # (Auto) [place] # (Auto) Eos # (Auto) Baso # (Auto) Abs Immat Gran (auto) Absolute Neuts (auto) Absolute Nucleated RBC Nucleated RBC % PT INR APTT Sodium Potassium Chloride Carbon Dioxide Anion Gap BUN Creatinine Estim Creat Clear Calc Estimated GFR Glucose POC Capillary Glucose 252 H Hemoglobin A1c Calcium Total Bilirubin AST ALT Alkaline Phosphatase Total Protein Albumin Post-procedural complaints: none Patient Feedback: Patient satisfied with anesthetic care.
[2020-09-23] MEDS: INSULIN ASPART (*BKC) 100 UNITS/ML SUB-Q (08:39)
[2020-09-23] MEDS: polyethylene glycoL 3350 17 GM POWD.PACK PO (08:40)
[2020-09-23 09:25] LABS: Glucose Point of Care 308 (65-105)
[2020-09-23 10:00] VITALS: BP 129/69; PULSE 85; RESP 14; TEMP 36.9; O2SAT 98
[2020-09-23 12:06] LABS: Glucose Point of Care 213 (65-105)
[2020-09-23 14:00] VITALS: BP 128/56; PULSE 83; RESP 16; TEMP 36.9; O2SAT 97
--- NOTE | 2020-09-23 15:49 | PM.IMPN ---
Progress Note: A&P Assessment and Plan (1) S/P ORIF (open reduction internal fixation) fracture: Code(s): Z98.890 - Other specified postprocedural states; Z87.81 - Personal history of (healed) traumatic fracture Status: Acute Assessment and Plan: Postop day 1 from ORIF for repair of the trimalleolar fracture of the right ankle by Dr. Camargo Postop management and pain management DVT management all per Ortho. Plan is to continue working with PT/OT since he is nonweightbearing to right ankle. Therapy wanted to work with him 1 more day since his house is a bilevel and he has to be able to use stairs Will see how he does with therapy tomorrow in consider discharge at that time He only wants Tylenol for pain at this time Appreciate orthopedic input. Continue monitoring. (2) Diabetes type 1, controlled: Code(s): E10.9 - Type 1 diabetes mellitus without complications Status: Acute Assessment and Plan: Hemoglobin A1c well controlled at 6.7%. Well controlled. Patient's brought his insulin pump today to put back on since his sugars have been more elevated after surgery. Will do Accu-Cheks AC and HS. Hypoglycemic protocol in place. (3) Essential (primary) hypertension: Code(s): I10 - Essential (primary) hypertension Status: Acute Assessment and Plan: The patient is on triamterene with hydrochlorothiazide and lisinopril. BP this morning is stable 128/56. Continue monitoring. (4) Mixed hyperlipidemia: Code(s): E78.2 - Mixed hyperlipidemia Status: Acute Assessment and Plan: His Crestor was continued. (5) Hypothyroid: Code(s): E03.9 - Hypothyroidism, unspecified Status: Acute Assessment and Plan: Continue with levothyroxine and check thyroid level. Time Spent With Patient Time with patient: 25 - 35 minutes Subjective Date/time seen: 09/23/20 15:49 Interval history: Date of service 09/23/2020: Patient denies much pain to his ankle at all but states it is because of his chronic neuropathy. He only reports pain about 3/10 at this time. He is otherwise eating and drinking without any issues. He does not have his insulin pump on at this time because his glucose was getting low yesterday since he was NPO prior to his surgery. He was worried about his glucose this morning which was 300. Otherwise denies any chest pain, shortness of breath, cough, nausea, vomiting, abdominal pain, calf pain, or any other symptoms at this time. Review of Systems Review of Systems: All systems reviewed & are unremarkable except as noted in HPI and below Exam Narrative: Exam Narrative: General: 70-year-old man sitting up in bed talking to the cleaning lady. Appears comfortable. In no acute distress. Skin: No jaundice or cyanosis. Good skin turgor. Neck: Full range of motion. Supple. Respiratory: Lungs are clear to auscultation bilaterally. No bony chest wall tenderness. Cardiovascular: The heart has a regular rate and rhythm without murmur. Lower extremities: Soft cast in place to right lower extremity from the upper mccain down to toes. Good capillary refill and able to wiggle toes on the right side. Decreased sensation due to neuropathy. No signs of toe swelling. No left lower extremity edema. Distal pulses are easily palpated on left. No calf tenderness to palpation on left. Gastrointestinal: The abdomen is soft, nontender and nondistended with active bowel sounds. Psychiatric: Lucid and oriented. Memory intact. Neurologic: No focal deficits. Speech is clear. No facial drooping. Objective Data Vital Signs Vital Signs: Vital Signs - 24 hr 09/22/20 20:10 09/22/20 20:25 09/22/20 20:40 Temperature
[2020-09-23 17:14] LABS: Glucose Point of Care 151 (65-105)
[2020-09-23 18:00] VITALS: BP 119/50; PULSE 85; RESP 16; TEMP 37.1; O2SAT 98
[2020-09-23 22:00] VITALS: BP 129/54; PULSE 78; RESP 16; TEMP 36.6; O2SAT 98
[2020-09-23 23:07] LABS: Glucose Point of Care 145 (65-105)
[2020-09-24 02:00] VITALS: BP 164/59; PULSE 68; RESP 16; TEMP 36.4; O2SAT 97
[2020-09-24] MEDS: ACETAMINOPHEN 500 MG TABLET 1000 MG PO ×2 (03:28→10:01)
[2020-09-24 05:14] VITALS: BP 121/62; PULSE 70; RESP 16; TEMP 36.4; O2SAT 97
[2020-09-24] MEDS: LEVOTHYROXINE SODIUM 50 MCG TABLET PO (05:40)
[2020-09-24] MEDS: HOME MEDICATION INSULIN PUMP 1 EACH XX (05:53)
[2020-09-24 06:53] LABS: Glucose Point of Care 114 (65-105)
[2020-09-24 07:35] LABS: Glucose Point of Care 103 (65-105)
[2020-09-24] MEDS: lisinopriL 20 MG TABLET 40 MG PO (10:01)
[2020-09-24] MEDS: ROSUVASTATIN 10 MG TABLET 20 MG PO (10:01)
[2020-09-24] MEDS: SENNA/DOCUSATE SODIUM TABLET 2 TAB PO (10:01)
[2020-09-24] MEDS: TRIAMTERENE 37.5 MG/HCTZ 25 MG (MAXZIDE) TABLET 1 TAB BY MOUTH (10:01)
[2020-09-24] MEDS: ASPIRIN 81 MG CHEWABLE TABLET PO (10:02)
[2020-09-24] MEDS: polyethylene glycoL 3350 17 GM POWD.PACK PO (10:02)
[2020-09-24] MEDS: MULTIVITAMINS THERAPEUTIC TAB (*BKC) 1 TABLET PO (10:02)
[2020-09-24] MEDS: LORATADINE 10 MG TABLET PO (10:02)
[2020-09-24] MEDS: FENOFIBRATE 160 MG TABLET PO (10:02)
[2020-09-24 12:27] LABS: Glucose Point of Care 105 (65-105)
[2020-09-24 14:00] VITALS: BP 118/59; PULSE 75; RESP 20; TEMP 36.3; O2SAT 100
[2020-09-24 14:38] LABS: Anion Gap 4 mmol/L (8-16); Blood Urea Nitrogen 34 mg/dL (9-20); Calcium 9.3 mg/dL (8.4-10.2); Carbon Dioxide 33 mmol/L (22-30); Chloride 102 mmol/L (98-107); Estimated CRCL calculation 62 ml/min; Estimated Glomerular Filt Rate 60; Glucose 110 mg/dL (75-110); Potassium 3.9 mmol/L (3.4-5.0); Sodium 139 mmol/L (137-145)
--- NOTE | 2020-09-24 14:46 | PM.DS ---
DS: Admitting Diagnosis Admitting Diagnosis Admitting Diagnosis: Ankle pain, fall DS: Discharge Diagnosis Discharge Diagnosis (1) S/P ORIF (open reduction internal fixation) fracture: Code(s): Z98.890 - Other specified postprocedural states; Z87.81 - Personal history of (healed) traumatic fracture Status: Acute Assessment and Plan: Postop day 2 from ORIF for repair of the trimalleolar fracture of the right ankle by Dr. Camargo Postop management and pain management DVT management all per Ortho. Plan is to continue working with PT/OT since he is nonweightbearing to right ankle. He worked with physical therapy today and they feel stable with him being able to be discharged home and gave him instructions on how to get up his stairs. He only wants Tylenol for pain at this time. He does not want any narcotics because he has had bad experience with them. He will need to follow-up with orthopedic as further discharge instructions. (2) Diabetes type 1, controlled: Code(s): E10.9 - Type 1 diabetes mellitus without complications Status: Acute Assessment and Plan: Hemoglobin A1c well controlled at 6.7%. Well controlled. Patient was placed back on his insulin pump yesterday afternoon and his glucoses have been well controlled in the 100s. Continue home regimen, diet changes and follow-up with PCP. (3) Essential (primary) hypertension: Code(s): I10 - Essential (primary) hypertension Status: Acute Assessment and Plan: The patient is on triamterene with hydrochlorothiazide and lisinopril. BP this morning is stable 121/62 (4) Mixed hyperlipidemia: Code(s): E78.2 - Mixed hyperlipidemia Status: Acute Assessment and Plan: His Crestor was continued. (5) Hypothyroid: Code(s): E03.9 - Hypothyroidism, unspecified Status: Acute Assessment and Plan: Continue with levothyroxine (6) Frequent urination: Code(s): R35.0 - Frequency of micturition Status: Acute Assessment and Plan: Patient reports having frequent urination since last evening as well as some leg cramping. He was worried we did not check any labs today and worried by his potassium and his kidney function since he has stage III CKD in relation to his diabetes. I ordered a BMP prior to his discharge which showed his kidney function is stable at 1.2, GFR greater than 60, normal potassium at 3.9. The patient states he had not taken his hydrochlorothiazide on admission and was restarted back on that yesterday. Otherwise his urine is clear, not dark, no odor, no other complaints at this time. Will have him follow-up with primary care provider for further evaluation if needed. DS: Summary Hospital Course Reason for hospitalization: 70 year old man with a history of diabetes with an insulin pump, who presented to the emergency room after falling in the snow and sustaining pain to his right ankle. He was found to have a trimalleolar fracture and underwent ORIF surgery on 09/22/[address] Camargo. He underwent surgery without any issues. His labs were all stable. He did well with PT and OT and is stable to be discharged home to remain nonweightbearing on his right ankle. He will need to follow-up with Dr. Camargo for further evaluation treatment. Patient only would like Tylenol for his pain control. Follow-up with PCP with any issues with urination are other issues. Hospital Course: See above Status at Discharge Cognitive/behavioral status at discharge: Stable, improved. Time Spent with Patient Time attestation: Total time spent providing and/or coor
== END 2020-09-24 16:20 | disposition home or self-care (01) ==
LOC: ANHED 13:35 → ANHSURGERY 14:07 → ANH2MED 18:07
PROVIDERS: Orthopaedic Surgery; Physician Assistant; Admitting Provider Family Medicine; Emergency Provider Emergency Medicine; PCP Family Medicine; Visit Provider Internal Medicine
PROC: (CPT 27822; principal; 2020-09-22 15:00)
DX: S82.851A Displaced trimalleolar fracture of right lower leg, initial encounter for closed fracture (principal); W00.9XXA Unspecified fall due to ice and snow, initial encounter; E78.5 Hyperlipidemia, unspecified; E10.42 Type 1 diabetes mellitus with diabetic polyneuropathy; E10.22 Type 1 diabetes mellitus with diabetic chronic kidney disease; E78.2 Mixed hyperlipidemia; E03.9 Hypothyroidism, unspecified; I12.9 Hypertensive chronic kidney disease with stage 1 through stage 4 chronic kidney disease, or unspecified chronic kidney disease; N18.30 Chronic kidney disease, stage 3 unspecified; R35.0 Frequency of micturition; Z96.41 Presence of insulin pump (external) (internal); Z87.891 Personal history of nicotine dependence
CPT/HCPCS: 27822; 36415; 71045; 73600; 73610; 73700; 80048; 80053; 82948; 83036; 85025; 85610; 85730; 93005; 96361; 96365; 96366; 96375; 96376; 97110; 97116; 97161; 97530; 99285; A9270; C1713; C1769; G0378; J0690; J1100; J1815; J1885; J2250; J2370; J2405; J2704; J3010; J3370; J7030; J7120

== ENCOUNTER 2020-10-03 09:41 | Inpatient (IN) | payer MEDICARE, SELFPAY ==
[2020-10-03] VITALS (24 sets, daily range): BP systolic 92–132; BP diastolic 52–75; PULSE 64–85; RESP 9–20; TEMP 36.1–36.8; O2SAT 97–100; BMI 31.7
--- NOTE | ~2020-10-03 | CT_ITS ---
EXAMINATION: CT abdomen pelvis wo con DATE: 10/05/2020 10:40 INDICATION: Urinary retention. Frequency. Bladder spasms. TECHNIQUE: Computed tomography (CT) of the abdomen and pelvis was performed without intravenous contr ast. Automated exposure control and iterative reconstruction technique were employed. The dose-length product was 740.78 mGy-cm. COMPARISON: CT abdomen and pelvis 06/04/2017 FINDINGS: The visualized portions of the lung bases demonstrate a pneumatocele in right lower lobe. C alcified right hilar and mediastinal lymph nodes are consistent with old granulomatous disease. No pl eural effusion. Calcifications in the liver and spleen are consistent with old granulomatous disease. The gallbladder is distended, likely secondary to fasting. The pancreas and adrenal glands are renetta l. There is mild bilateral hydronephrosis and hydroureter. The bladder is markedly distended. The pro state is severely enlarged. There is no urolithiasis. There are changes of appendectomy. There is sadi ateral gynecomastia. There is mild thoracolumbar spondylosis. IMPRESSION: 1. Markedly distended bladder with mild bilateral hydronephrosis and hydroureter. 2. Severely enlarged prostate. Reviewed, dictated and finalized at location A. PASSER IMPRESSION: 1. Markedly distended bladder with mild bilateral hydronephrosis and hydrourete r. 2. Severely enlarged prostate.
--- NOTE | ~2020-10-03 | XR_ITS ---
EXAMINATION: XR chest 2V EXAM DATE: 10/03/2020 10:58 INDICATION: Headache dizziness and neck pain. TECHNIQUE: Frontal and lateral projections of the chest obtained and reviewed. Comparison is made to prior examination from 09/22/2020. FINDINGS: The lungs are clear. There are no pleural effusions. The cardiomediastinal silhouette is within normal limits. There is no pneumothorax suspected. The bones and soft tissues are unremarkab le. IMPRESSION: No acute cardiopulmonary findings. Reviewed, dictated and finalized at location B. SYSTEMS ANALYST
--- NOTE | 2020-10-03 09:46 | ECG_ITS ---
Measurements Intervals [place] Rate: 63 P: 59 [place]: 154 QRS: 6 QRSD: 147 T: 41 QT: 406 QTc: 417 Interpretive Statements SINUS RHYTHM RIGHT BUNDLE BRANCH BLOCK BASELINE ARTIFACT- I, II, V6 ABNORMAL ECG Electronically Signed On 10-03-2020 11:34:23 [employer] by Henrique Meehan D.O.
--- NOTE | 2020-10-03 10:51 | ED.DIZZY ---
HPI - Dizziness General Chief Complaint: Dizziness <Tiffany Fritz PA-C - Last Filed: 10/03/20 12:45> Stated Complaint: Dizzy <Tiffany Fritz PA-C - Last Filed: 10/03/20 12:45> Time Seen by Provider: 10/03/20 10:16 <Tiffany Fritz PA-C - Last Filed: 10/03/20 12:45> Source: patient <KATELYNN Lema Last Filed: 10/03/20 12:45> Mode of arrival: EMS <KATELYNN Lema Last Filed: 10/03/20 12:45> Limitations: no limitations <KATELYNN Lema Last Filed: 10/03/20 12:45> History of Present Illness HPI Narrative: This is a 70 year old male that presents to the ER for a pre-syncopal episode today. Reports he was at his follow up appointment for his recent ORIF of the right ankle. Reports he was sitting in a wheel chair with his leg elevated. He was taking pictures of the wound. He started to feel very lightheaded. Reports blurry vision and a headache. Reports this lasted about 20 minutes. He did note during that episode his glucometer was reading that his blood sugar was below 60. He turned off his insulin pump. They called EMS and his blood sugar was re-checked on the way and was 175. Denies chest pain, shortness of breath, vomiting, weakness or numbness. <Tiffany Fritz PA-C - Last Filed: 10/03/20 12:45> Related Data Home Medications: Home Medications Medication Instructions Recorded Confirmed aspirin 81 mg tablet,delayed 81 mg PO BID 07/16/19 10/03/20 release sildenafil 25 mg tablet 25 mg PO PRN PRN 07/16/19 10/03/20 insulin lispro 100 unit/mL 1 sliding scale dose SUB-Q 01/25/20 10/03/20 subcutaneous solution USEASDIRECTD multivitamin 1 tablet PO DAILY 01/25/20 10/03/20 fenofibrate 160 mg tablet 160 mg PO DAILY 07/01/20 10/03/20 levothyroxine 50 mcg PO DAILY 09/22/20 10/03/20 lisinopril 40 mg PO DAILY 09/22/20 10/03/20 acetaminophen [Tylenol] 1,250 mg Q8H 10/03/20 10/03/20 triamterene-hydrochlorothiazid 1 tablet DAILY 10/03/20 10/03/20 <Tiffany Fritz PA-C - Last Filed: 10/03/20 12:45> Allergies/Adverse Reactions: Allergies Allergy/AdvReac Type Severity Reaction Status Date / Time codeine Allergy Severe ANAPHALACTI Verified 10/03/20 14:44 C levofloxacin Allergy Severe ITCHING, Verified 10/03/20 14:44 THROAT CLOSING Tetanus Vaccines and Toxoid Allergy Intermediate Swelling Verified 10/03/20 14:44 TOBREX EYE DROP Allergy Unknown REDNESS, Uncoded 10/03/20 14:44 IRRITATION <Tiffany Fritz PA-C - Last Filed: 10/03/20 12:45> Review of Systems Review of Systems: Narrative: CONSTITUTIONAL: Denies fever EYES: Reports visual changes CARDIOVASCULAR: Denies chest pain RESPIRATORY: Denies dyspnea. GASTROINTESTINAL: Denies vomiting NEUROLOGIC: Reports headache. Denies numbness, or weakness. <Tiffany Fritz PA-C - Last Filed: 10/03/20 12:45> All systems reviewed & are unremarkable except as noted in HPI and below <Tiffany Fritz PA-C - Last Filed: 10/03/20 12:45> [facility] Past Medical History Medical History: Medical History (Updated 10/05/20 @ 10:40 by Van Lester PA-C) Alcohol use 2 drinks/month Arthritis Back pain BPH (benign prostatic hyperplasia) Diabetes Former smoker HLD (hyperlipidemia) Hypoglycemia Hypothyroid Insulin pump in place S/P ORIF (open reduction internal fixation) fracture right ankle Type 2 diabetes mellitus with diabetic autonomic neuropathy, with long-term current use of insulin UTI (urinary tract infection) <Tiffany Fritz PA-C - Last Filed: 10/03/20 12:45> Surgical History Surgical History: Surgical History H/O vasectomy History of appendectomy History of tonsillectomy S/P LASIK surgery <Tiffany Fritz PA-C - Last Filed: 10/03/20 12:45> Family History Family History: Family History Father Diabetes mellitus Hypertension Family history of c
[2020-10-03 11:15] LABS: Glucose Point of Care 174 (65-105)
[2020-10-03 11:15] LABS: Glucose Point of Care 162 (65-105)
[2020-10-03 11:51] LABS: Basophils Percent Auto 0.4 % (0.2-1.2); Eosinophils Absolute Auto 0.1 K/mm3 (0-0.3); Eosinophils Percent Auto 0.6 % (0-4.4); Hematocrit 44.2 % (42.0-52.0); Hemoglobin 14.8 g/dL (14.0-18.0); Immature Granulocyte Absolute 0.06 K/mm3 (0.00-0.031); Immature Granulocyte Percent A 0.5 % (0-0.5); Lymphocytes Absolute Auto 0.98 K/mm3 (0.9-3.2); Lymphocytes Percent Auto 8.6 % (18.3-44.2); Mean Corpuscular HGB Conc 33.5 g/dl (32-36); Mean Corpuscular Hemoglobin 29.5 pg (26-34); Mean Corpuscular Volume 88.2 fl (80-100); Mean Platelet Volume 9.4 fl (7.4-10.4); Monocytes Absolute Auto 0.7 K/mm3 (0.1-0.6); Neutrophils Absolute Auto 9.6 K/mm3 (1.3-6.7); Neutrophils Percent Auto 83.9 % (45.5-73.1); Platelet Count Result 272 k/mm3 (150-375); Red Blood Count 5.01 M/mm3 (4.6-6.20); Red Cell Distribution Width 13.4 % (11.5-14.5); White Blood Count 11.4 K/mm3 (4.5-10.0)
--- NOTE | 2020-10-03 11:55 | ED.DIZZY ---
HPI - Dizziness General Chief Complaint: Dizziness Stated Complaint: Dizzy Time Seen by Provider: 10/03/20 10:16 Source: patient Mode of arrival: EMS Limitations: no limitations History of Present Illness HPI Narrative: This is a 70-year-old male that Related Data Home Medications Medication Instructions Recorded Confirmed aspirin 81 mg tablet,delayed 81 mg PO BID 07/16/19 09/22/20 release sildenafil 25 mg tablet 25 mg PO DAILY PRN 07/16/19 09/22/20 insulin lispro 100 unit/mL 1 sliding scale dose SUB-Q 01/25/20 09/22/20 subcutaneous solution USEASDIRECTD multivitamin 1 tablet PO DAILY 01/25/20 09/22/20 fenofibrate 160 mg tablet 160 mg PO DAILY 07/01/20 09/22/20 levothyroxine 50 mcg PO DAILY 09/22/20 09/22/20 lisinopril 40 mg PO DAILY 09/22/20 09/22/20 Allergies Allergy/AdvReac Type Severity Reaction Status Date / Time codeine Allergy Severe ANAPHALACTI Verified 10/03/20 09:41 C levofloxacin Allergy Severe ITCHING, Verified 10/03/20 09:41 THROAT CLOSING Tetanus Vaccines and Toxoid Allergy Intermediate Swelling Verified 10/03/20 09:41 TOBREX EYE DROP Allergy Unknown REDNESS, Uncoded 09/22/20 14:39 IRRITATION PMFSH Past Medical History Medical History (Updated 09/24/20 @ 14:49 by Bethany Dewitt PA-C) Alcohol use 2 drinks/month Arthritis Back pain Diabetes Former smoker HLD (hyperlipidemia) Hypoglycemia Hypothyroid Insulin pump in place S/P ORIF (open reduction internal fixation) fracture right ankle Type 2 diabetes mellitus with diabetic autonomic neuropathy, with long-term current use of insulin UTI (urinary tract infection) Surgical History Surgical History (Updated 09/23/20 @ 00:02 by Garima Guidry NP) H/O vasectomy History of appendectomy History of tonsillectomy S/P LASIK surgery Family History Family History Father Diabetes mellitus Hypertension Family history of cardiovascular disease Malignant neoplasm of prostate Mother Hypertension Family history of kidney disease Grandparent Malignant neoplasm of prostate Other Family history of elevated blood lipids Family history of malignant neoplasm of kidney Social History Social History (Updated 09/23/20 @ 00:00 by Garima Guidry NP) Social History: the patient stated that he smoked from the age of [age]. The patient stated he quit drinking at that time as well. The patient had several jobs. 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 He lives with his . His is the 1st durable power of trademark attorney and then he lists his kids as well. He has 2 children. The patient used to smoke a pack a cigarettes a day but then quit when he was in his 30s. The patient desires to be a full code. Smoking status: Former smoker Tobacco type: cigarettes Alcohol intake: never Substance use: never Gender identity (if verbalized by the patient): Male Spiritual care concerns: No Course Vital Signs Vital signs: Vital Signs Temperature 97.9 F 10/03/20 09:34 Pulse Rate 71 10/03/20 09:34 Respiratory Rate 16 10/03/20 09:34 Blood Pressure 106/62 10/03/20 09:34 Pulse Oximetry 100 10/03/20 09:34 Temperature 97.9 F 10/03/20 09:34 Pulse Rate 76 10/03/20 11:15 Respiratory Rate 10 L 10/03/20 11:15 Blood Pressure 112/75 10/03/20 11:15 Pulse Oximetry 99 10/03/20 11:15 MDM - Dizziness Lab Data Result diagrams: 10/03/20 11:43 10/03/20 11:43 Labs: Lab Results 10/03/20 10/03/20 10/03/20 Range/Units 09:43 11:11 11:43 WBC RBC Hgb Hct MCV MCH MCHC RDW Plt Count MPV Immature Gran % (Auto) Neut % (Auto) Lymph % (Auto) [place] % (Auto) Eos % (Auto) Baso % (Auto) Lymph # (Auto) [place] # (Auto) Eos # (Auto) Baso # (Auto) Abs Immat Gran (auto) Absolute Neuts (a
[2020-10-03 11:59] LABS: Add Urine Microscopic? NO; Appearance Urine Clear (Clear); Bilirubin Urine Negative (Negative); Blood Urine Negative (Negative); Color Urine Yellow (Yellow); Glucose Urine UA Negative (Negative); Ketones Urine Negative (Negative); Leukocyte Esterase Ur Negative LEU/UL (Negative); Mucus Urine Rare /lpf; Nitrate Urine Negative (Negative); Protein Urine Negative (Negative); RBC Urine 0-2 /hpf (0-2); Specific Grav Ur 1.014 (1.001-1.035); Urobilinogen Urine Negative mg/dL (<2.0); WBC Urine 0-3 /hpf
[2020-10-03 12:05] LABS: Alanine Aminotransferase 25 U/L (4-50); Albumin Level 4.2 g/dL (3.5-5.1); Alkaline Phosphatase 63 U/L (38-126); Anion Gap 10 mmol/L (8-16); Aspartate Amino Transferase 32 U/L (17-59); Bilirubin,Total 0.5 mg/dL (0.2-1.3); Blood Urea Nitrogen 66 mg/dL (9-20); Calcium 10.1 mg/dL (8.4-10.2); Carbon Dioxide 25 mmol/L (22-30); Chloride 100 mmol/L (98-107); Estimated CRCL calculation 39 ml/min; Estimated Glomerular Filt Rate 35; Glucose 154 mg/dL (75-110); Potassium 4.4 mmol/L (3.4-5.0); Sodium 135 mmol/L (137-145)
[2020-10-03] MEDS: SODIUM CHLORIDE 0.9% IV 1,000 ML 999 ML IV CONT (12:39)
--- NOTE | 2020-10-03 13:35 | ADMGEN ---
This patient, Joseph Drummond, was admitted to Medical Room 346-01. Patient/family oriented to hospital policies and general routines including ID bracelet, bed and alarms, visiting hours, pain management, procedures, bathroom and other care routines, personal items, smoking policy, room service/diet, and visiting hours. Information on how to activate the Rapid Response Team has been discussed. Patient/Family are encouraged to report perceived risks to care and to ask questions if they do not understand what they are told or what they should do.
[2020-10-03] MEDS: SODIUM CHLORIDE 0.9% IV 1,000 ML 125 ML IV CONT ×2 (13:44→22:28)
[2020-10-03 13:54] LABS: Glucose Point of Care 120 (65-105)
--- NOTE | 2020-10-03 14:23 | PM.IMHP ---
H&P: HPI History of Present Illness Date/Time: 10/03/20 14:23 Chief Complaint: Dizziness Narrative: Joseph Drummond is a 70 year old male whom I a.m. familiar with. The patient was discharged from here on 09/24/2020 postop day from a ORIF repair of the trimalleolar fracture of the right ankle by Dr. deleon. The patient has diabetes type 1 and has a insulin pump. He has A1c is 6.7 is very well controlled. The patient has been taking triamterene with hydrochlorothiazide and lisinopril. Upon discharge his GFR and creatinine were within normal limits. His creatinine was 1.21 use discharge and his GFR was greater than 60. Today the patient went for his postop follow-up with Dr. deleon . The nurse was unwrapping his right foot when the patient stated that he felt lightheaded was going to pass out. His blood sugar was reported as low on his pump and he stated that his blood pressure dropped as well. The patient continues to take his diuretics and has not been drinking as many fluids his he usually does. The patient had a of blurred vision and headache today and felt like he was going to pass out. This lasted for about 20 minutes. He was given when he believes was just water at the doctor's office and his blood sugar came up to 174. The patient stated that he had turned off his insulin pump that time. And when he found out that his blood sugar was 174 he turned his pump back on. creatinine is 1.9 and creatinine clearance 39. Blood glucose is now 120. White count is 11.4. Chest x-ray was read as no acute cardiopulmonary finding. Patient was admitted into observation on date of service of 10/03/2020. Review of Systems Review of Systems: All systems reviewed & are unremarkable except as noted in HPI and below Constitutional: Constitutional: Reports as per HPI and Reports no additional constitutional complaints Eyes: Eyes: Reports as per HPI and Reports no additional eye complaints ENT: Reports system reviewed and no additional complaints, except as documented and Reports Normal hearing present Cardiovascular: Cardiovascular: Reports no additional cardiovascular complaints Respiratory: Respiratory: Reports no additional respiratory complaints and Reports no additional respiratory complaints Gastrointestinal: Gastrointestinal: Reports as per HPI and Reports no additional gastrointestinal complaints Musculoskeletal: Musculoskeletal: Reports no additional musculoskeletal complaints Integumentary/Breasts: Skin/Breast: Reports system reviewed and no additional complaints, except as docu and Reports as per HPI Neurologic: Reports system reviewed and no additional complaints, except as documented, Reports as per HPI and Reports Normal hearing present Psychiatric: Psychiatric: Reports no additional psychiatric complaints and Reports as per HPI Endocrine: Endocrine: Reports no additional endocrine complaints Hematologic/Lymphatic: Hematologic/Lymphatic: Reports no additional hematologic/lymphatic complaints Allergic/Immunologic: Allergic/Immunologic: Reports no additional allergic/immunologic complaints [facility] Past Medical History Medical History Alcohol use 2 drinks/month Arthritis Back pain Diabetes Former smoker HLD (hyperlipidemia) Hypoglycemia Hypothyroid Insulin pump in place S/P ORIF (open reduction internal fixation) fracture right ankle Type 2 diabetes mellitus with diabetic autonomic neuropathy, with long-term current use of insulin UTI (urinary tract infection) Surgical History Surgical History H/O vasectomy History of appendectomy History of tonsillectomy S/P LASIK surgery Family History Family History Father Diabetes mellitus Hypertension Family history of cardiovascular disease Malignant neoplasm of prostate Mother Hypertension Family hist
[2020-10-03] MEDS: ACETAMINOPHEN 500 MG TABLET 1000 MG PO ×2 (16:51→23:44)
[2020-10-03 17:17] LABS: Glucose Point of Care 127 (65-105)
[2020-10-03] MEDS: ASPIRIN 81 MG ENTERIC TABLET PO (17:40)
[2020-10-04] VITALS (7 sets, daily range): BP systolic 153–163; BP diastolic 64–97; PULSE 69–81; RESP 14; TEMP 36.7–36.8; O2SAT 97–99
[2020-10-04] MEDS: LEVOTHYROXINE SODIUM 50 MCG TABLET PO (05:33)
[2020-10-04 06:18] LABS: Basophils Percent Auto 0.6 % (0.2-1.2); Eosinophils Absolute Auto 0.2 K/mm3 (0-0.3); Eosinophils Percent Auto 3.5 % (0-4.4); Hematocrit 39.6 % (42.0-52.0); Hemoglobin 12.9 g/dL (14.0-18.0); Immature Granulocyte Absolute 0.04 K/mm3 (0.00-0.031); Immature Granulocyte Percent A 0.6 % (0-0.5); Lymphocytes Absolute Auto 1.75 K/mm3 (0.9-3.2); Lymphocytes Percent Auto 25.2 % (18.3-44.2); Mean Corpuscular HGB Conc 32.6 g/dl (32-36); Mean Corpuscular Hemoglobin 28.7 pg (26-34); Mean Platelet Volume 9.5 fl (7.4-10.4); Monocytes Absolute Auto 0.7 K/mm3 (0.1-0.6); Monocytes Percent Auto 9.8 % (2.6-8.5); Neutrophils Absolute Auto 4.2 K/mm3 (1.3-6.7); Neutrophils Percent Auto 60.3 % (45.5-73.1); Platelet Count Result 266 k/mm3 (150-375); Red Cell Distribution Width 13.4 % (11.5-14.5); White Blood Count 6.9 K/mm3 (4.5-10.0)
[2020-10-04 06:33] LABS: Alanine Aminotransferase 22 U/L (4-50); Albumin Level 3.7 g/dL (3.5-5.1); Alkaline Phosphatase 50 U/L (38-126); Anion Gap 5 mmol/L (8-16); Aspartate Amino Transferase 29 U/L (17-59); Bilirubin,Total 0.4 mg/dL (0.2-1.3); Blood Urea Nitrogen 59 mg/dL (9-20); Calcium 9.3 mg/dL (8.4-10.2); Carbon Dioxide 27 mmol/L (22-30); Chloride 106 mmol/L (98-107); Estimated CRCL calculation 49 ml/min; Estimated Glomerular Filt Rate 47; Glucose 85 mg/dL (75-110); Magnesium 2.1 mg/dL (1.6-2.3); Potassium 3.7 mmol/L (3.4-5.0); Sodium 138 mmol/L (137-145)
[2020-10-04] MEDS: SODIUM CHLORIDE 0.9% IV 1,000 ML 125 ML IV CONT (06:33)
[2020-10-04] MEDS: ACETAMINOPHEN 500 MG TABLET 1000 MG PO ×3 (07:20→22:32)
[2020-10-04] MEDS: MULTIVITAMINS THERAPEUTIC TAB (*BKC) 1 TABLET PO (08:23)
[2020-10-04] MEDS: ROSUVASTATIN 10 MG TABLET 20 MG PO (08:23)
[2020-10-04] MEDS: FENOFIBRATE 160 MG TABLET PO (08:23)
[2020-10-04] MEDS: ASPIRIN 81 MG ENTERIC TABLET PO ×2 (08:23→17:11)
--- NOTE | 2020-10-04 13:07 | PM.IMPN ---
Progress Note: A&P Assessment and Plan (1) KEYSHA (acute kidney injury): Code(s): N17.9 - Acute kidney failure, unspecified Status: Acute Assessment and Plan: Cr 1.90 on arrival; today it is 1.50 with IV fluid hydration. Likely secondary to dehydration, hypovolemia Continue with IV fluids for now Continue to hold home lisinopril, hydrochlorothiazide/triamterene Monitor daily (2) Pre-syncope: Code(s): R55 - Syncope and collapse Status: Acute Assessment and Plan: Likely secondary to hypovolemia/dehydration and possible low blood sugar. Sugar is running fine. BP a bit elevated now. Tele grossly unremarkable Continue IV fluid hydration as noted above d/c tele Monitor BGL during stay (3) Dysuria: Code(s): R30.0 - Dysuria Status: Acute Assessment and Plan: Patient developed dysuria overnight similar to previous UTIs. UA yesterday was grossly unremarkable. Possibly related to his prostate issues although his is unable to tell me what exact medical issues he has. He sees Dr. Mendez as an outpatient given history of UTI will obtain UA and UCx Pending UA results he likely will need to see Dr. Mendez as an outpatient Monitor (4) Type 2 diabetes mellitus with diabetic autonomic neuropathy, with long-term current use of insulin: Code(s): E11.43 - Type 2 diabetes mellitus with diabetic autonomic (poly)neuropathy; Z79.4 - half-way (current) use of insulin Status: Acute Assessment and Plan: BGL seems well controlled. Monitor implanted device glucose checks ACHS, hypoglycemia protocol, diabetic diet Will continue to monitor (5) Hypothyroid: Code(s): E03.9 - Hypothyroidism, unspecified Status: Acute Assessment and Plan: TSH tomorrow Continue home levothyroxine (6) S/P ORIF (open reduction internal fixation) fracture: Code(s): Z98.890 - Other specified postprocedural states; Z87.81 - Personal history of (healed) traumatic fracture Status: Acute Assessment and Plan: Patient had follow up with Dr. Camargo on 10/03 but was sent to ED from his office given his symptoms. Continue with pain control F/u with Dr. Camargo as outpatient (7) Essential (primary) hypertension: Code(s): I10 - Essential (primary) hypertension Status: Acute Assessment and Plan: BP elevated into 160s sys most recently likely from holding home meds Continue to hold home BP meds due to KEYSHA PRN hydralazine with parameters Monitor closely (8) Mixed hyperlipidemia: Code(s): E78.2 - Mixed hyperlipidemia Status: Acute Assessment and Plan: Continue with rosuvastatin. Subjective Date/time seen: 10/04/20 13:07 Interval history: Patient is a 70 yo M with history of DMII (managed with insulin pump), HLD, hypothyroidism, and recent ORIF for trimalleolar fracture of right ankle per Dr. Camargo who is seen in follow up for presyncopal episode, KEYSHA, and acute dehydration. Patient states he feels much better today. His sugars have been running 90s-140s today on his implanted monitor. He does mention dysuria and increased urine output since last night; he mentions his dysuria is similar to previous UTIs in the past. No fevers but does feel cold at times. No flank pain. No other complaints at the moment. Denies current headaches, dizziness, lightheadedness, changes in v/h, cp/palpitations, sob/cough, n/v/d/c, abd pain, changes in BMs, hematuria, cloudy urine, left calf pain/swelling. Review of Systems Review of Systems: All systems reviewed & are unremarkable except as noted in HPI and below Exam Narrative: Exam Narrative:
[2020-10-04 13:29] LABS: Add Urine Microscopic? NO; Appearance Urine Clear (Clear); Bilirubin Urine Negative (Negative); Blood Urine Negative (Negative); Color Urine Straw (Yellow); Glucose Urine UA Negative (Negative); Ketones Urine Negative (Negative); Leukocyte Esterase Ur Negative LEU/UL (NEGATIVE); Nitrate Urine Negative (Negative); Protein Urine Negative (Negative); Specific Grav Ur 1.011 (1.001-1.035); Urobilinogen Urine Negative mg/dL (<2.0)
[2020-10-04] MEDS: SODIUM CHLORIDE 0.9% IV 1,000 ML 100 ML IV CONT (16:14)
[2020-10-04 17:51] LABS: Glucose Point of Care 107 (65-105)
[2020-10-04 21:49] LABS: Glucose Point of Care 128 (65-105)
[2020-10-04] MEDS: HYOSCYAMINE SULFATE 0.125 MG TABLET PO (23:08)
[2020-10-05] MEDS: SODIUM CHLORIDE 0.9% IV 1,000 ML 100 ML IV CONT (01:06)
[2020-10-05] MEDS: HYOSCYAMINE SULFATE 0.125 MG TABLET PO ×2 (04:13→08:55)
[2020-10-05] MEDS: ACETAMINOPHEN 500 MG TABLET 1000 MG PO ×3 (05:05→19:17)
[2020-10-05 05:34] VITALS: BP 180/81; PULSE 74; RESP 14; TEMP 36.6; O2SAT 98
[2020-10-05] MEDS: hydrALAZINE HCL 20 MG/ML VIAL 10 MG IV PUSH (05:39)
[2020-10-05] MEDS: LEVOTHYROXINE SODIUM 50 MCG TABLET PO (05:39)
[2020-10-05 05:56] LABS: Basophils Percent Auto 0.5 % (0.2-1.2); Eosinophils Absolute Auto 0.2 K/mm3 (0-0.3); Eosinophils Percent Auto 3.2 % (0-4.4); Hematocrit 40.1 % (42.0-52.0); Hemoglobin 13.2 g/dL (14.0-18.0); Immature Granulocyte Absolute 0.02 K/mm3 (0.00-0.031); Immature Granulocyte Percent A 0.3 % (0-0.5); Lymphocytes Absolute Auto 0.97 K/mm3 (0.9-3.2); Lymphocytes Percent Auto 15.6 % (18.3-44.2); Mean Corpuscular HGB Conc 32.9 g/dl (32-36); Mean Corpuscular Hemoglobin 29.5 pg (26-34); Mean Corpuscular Volume 89.7 fl (80-100); Mean Platelet Volume 9.3 fl (7.4-10.4); Monocytes Absolute Auto 0.6 K/mm3 (0.1-0.6); Monocytes Percent Auto 9.2 % (2.6-8.5); Neutrophils Absolute Auto 4.4 K/mm3 (1.3-6.7); Neutrophils Percent Auto 71.2 % (45.5-73.1); Platelet Count Result 245 k/mm3 (150-375); Red Blood Count 4.47 M/mm3 (4.6-6.20); Red Cell Distribution Width 13.6 % (11.5-14.5); White Blood Count 6.2 K/mm3 (4.5-10.0)
[2020-10-05 06:17] LABS: Anion Gap 6 mmol/L (8-16); Blood Urea Nitrogen 38 mg/dL (9-20); Calcium 9.2 mg/dL (8.4-10.2); Carbon Dioxide 29 mmol/L (22-30); Chloride 107 mmol/L (98-107); Estimated CRCL calculation 52 ml/min; Estimated Glomerular Filt Rate 50; Glucose 84 mg/dL (75-110); Sodium 142 mmol/L (137-145)
[2020-10-05 07:53] LABS: Glucose Point of Care 126 (65-105)
[2020-10-05 08:53] VITALS: BP 168/96
[2020-10-05] MEDS: lisinopriL 20 MG TABLET 40 MG PO (08:55)
[2020-10-05] MEDS: FENOFIBRATE 160 MG TABLET PO (08:55)
[2020-10-05] MEDS: ASPIRIN 81 MG ENTERIC TABLET PO ×2 (08:55→16:50)
[2020-10-05] MEDS: MULTIVITAMINS THERAPEUTIC TAB (*BKC) 1 TABLET PO (08:55)
[2020-10-05] MEDS: ROSUVASTATIN 10 MG TABLET 20 MG PO (08:55)
--- NOTE | 2020-10-05 10:06 | PM.IMPN ---
Progress Note: A&P Assessment and Plan (1) Urinary retention: Code(s): R33.9 - Retention of urine, unspecified Status: Acute Assessment and Plan: Patient developed dysuria at admission similar to previous UTIs, however, patient now appears to be retaining urine, and has developed severe bladder spasms overnight, thus symptoms likely secondary to urinary retention possibly related to his BPH in the setting of recent ankle surgery last week. UA repeated again yesterday was again grossly unremarkable. Obtain CT abd/pelvis w/o contrast to rule out stone and to further evaluated bladder, kidneys, and prostate He has been started on Flomax Qam and Levsin .125 mg q4 prn for now Pending results of CT scan, will consider Urology consult in the am vs outpatient follow up; will discuss further with Urology tomorrow Initiate Connor catheter Monitor (2) KEYSHA (acute kidney injury): Code(s): N17.9 - Acute kidney failure, unspecified Status: Acute Assessment and Plan: Cr 1.90 on arrival; today it is 1.40 with IV fluid hydration. Given recent developments, this now appears this is possibly due to retention s/p surgery versus now less likely secondary to dehydration, hypovolemia Discontinue IV fluids Continue to hold home hydrochlorothiazide/triamterene; lisinopril has been resumed today given elevated BP Monitor daily (3) BPH (benign prostatic hyperplasia): Code(s): N40.0 - Benign prostatic hyperplasia without lower urinary tract symptoms Status: Acute Assessment and Plan: Patient reports occasionally seeing Dr. Mendez as an outpatient every year or so for monitoring PSA. He has not seen him since last year. Patient now retaining urine as noted above Obtain PSA Please see above a/p (4) Pre-syncope: Code(s): R55 - Syncope and collapse Status: Acute Assessment and Plan: Possible vagal episode with urinary retention vs less likely dehydration/hypovolemia. Sugars are reasonable. Tele was grossly unremarkable during stay. BP now elevated Discontinue IV fluids d/c tele Monitor BGL during stay (5) Type 2 diabetes mellitus with diabetic autonomic neuropathy, with long-term current use of insulin: Code(s): E11.43 - Type 2 diabetes mellitus with diabetic autonomic (poly)neuropathy; Z79.4 - MCFP (current) use of insulin Status: Acute Assessment and Plan: BGL seems well controlled. Monitor implanted device glucose checks ACHS, hypoglycemia protocol, diabetic diet Will continue to monitor (6) Hypothyroid: Code(s): E03.9 - Hypothyroidism, unspecified Status: Acute Assessment and Plan: TSH WNL Continue home levothyroxine (7) S/P ORIF (open reduction internal fixation) fracture: Code(s): Z98.890 - Other specified postprocedural states; Z87.81 - Personal history of (healed) traumatic fracture Status: Acute Assessment and Plan: Patient had follow up with Dr. Camargo on 10/03 but was sent to ED from his office given his symptoms. Continue with pain control F/u with Dr. Camargo as outpatient (8) Essential (primary) hypertension: Code(s): I10 - Essential (primary) hypertension Status: Acute Assessment and Plan: BP elevated into 160s sys most recently likely from holding home meds; he was given hydralazine this am due to elevated BP Continue to hold home hctz/triamterenedue to KEYSHA Lisinopril resumed today PRN hydralazine with parameters Monitor closely (9) Mixed hyperlipidemia: Code(s): E78.2 - Mixed hyperlipidemia Status: Acute Assessment and Plan: Continue with rosuvastatin.
[2020-10-05] MEDS: TAMSULOSIN HCL 0.4 MG CAPSULE PO (11:09)
[2020-10-05 11:28] LABS: Prostate Specific Antigen 10.3 ng/mL (< OR = 4.0)
[2020-10-05 11:40] LABS: Glucose Point of Care 121 (65-105)
[2020-10-05 14:00] VITALS: BP 152/70; PULSE 106; RESP 18; TEMP 35.9; O2SAT 98
--- NOTE | 2020-10-05 14:56 | PC.NURSE ---
Van Lester and iso coordinator Desiree both notified of the concerns that the pt has about wanting therapy at home. Also shared the concerns the has about being able to help the pt get up at home. PT and OT both have been started already on the pt while he is here in the hospital. Desiree will touch base with both of them tomorrow to talk about their options for discharge.
[2020-10-05 16:29] LABS: Glucose Point of Care 157 (65-105)
[2020-10-05 19:39] VITALS: BP 152/68; PULSE 94; RESP 14; TEMP 36.8; O2SAT 98
[2020-10-05 21:27] LABS: Glucose Point of Care 126 (65-105)
[2020-10-06] MEDS: ACETAMINOPHEN 500 MG TABLET 1000 MG PO (01:42)
[2020-10-06] MEDS: LEVOTHYROXINE SODIUM 50 MCG TABLET PO (05:38)
[2020-10-06 05:42] LABS: Hematocrit 39.1 % (42.0-52.0); Hemoglobin 12.8 g/dL (14.0-18.0); Mean Corpuscular HGB Conc 32.7 g/dl (32-36); Mean Corpuscular Volume 88.5 fl (80-100); Mean Platelet Volume 8.9 fl (7.4-10.4); Platelet Count Result 246 k/mm3 (150-375); Red Blood Count 4.42 M/mm3 (4.6-6.20); Red Cell Distribution Width 13.5 % (11.5-14.5); White Blood Count 6.3 K/mm3 (4.5-10.0)
[2020-10-06 06:00] VITALS: BP 169/71; PULSE 75; RESP 16; TEMP 36.3; O2SAT 100
[2020-10-06 06:04] LABS: Anion Gap 5 mmol/L (8-16); Blood Urea Nitrogen 31 mg/dL (9-20); Calcium 9.7 mg/dL (8.4-10.2); Carbon Dioxide 29 mmol/L (22-30); Chloride 107 mmol/L (98-107); Estimated CRCL calculation 61 ml/min; Estimated Glomerular Filt Rate 60; Glucose 91 mg/dL (75-110); Magnesium 1.8 mg/dL (1.6-2.3); Potassium 3.8 mmol/L (3.4-5.0); Sodium 141 mmol/L (137-145)
[2020-10-06 07:30] LABS: Glucose Point of Care 84 (65-105)
[2020-10-06] MEDS: TRIAMTERENE 37.5 MG/HCTZ 25 MG (MAXZIDE) TABLET 1 TAB BY MOUTH (08:41)
[2020-10-06] MEDS: ROSUVASTATIN 10 MG TABLET 20 MG PO (08:42)
[2020-10-06] MEDS: TAMSULOSIN HCL 0.4 MG CAPSULE PO (08:42)
[2020-10-06] MEDS: ASPIRIN 81 MG ENTERIC TABLET PO (08:42)
[2020-10-06] MEDS: MULTIVITAMINS THERAPEUTIC TAB (*BKC) 1 TABLET PO (08:42)
[2020-10-06] MEDS: lisinopriL 20 MG TABLET 40 MG PO (08:42)
[2020-10-06] MEDS: FENOFIBRATE 160 MG TABLET PO (08:42)
--- NOTE | 2020-10-06 10:08 | PM.DS ---
DS: Admitting Diagnosis Admitting Diagnosis Admitting Diagnosis: KEYSHA, presyncope DS: Discharge Diagnosis Discharge Diagnosis (1) Urinary retention: Code(s): R33.9 - Retention of urine, unspecified Status: Acute Assessment and Plan: Patient developed dysuria and bladder spasms during stay. Subsequent CT abd/pelvis showed markedly distended bladder with mild bilateral hydronephrosis and hydroureter and severely enlarged prostate thus symptoms likely due to urinary retention related to his BPH. Repeat UA unremarkable. UCx pending but less likely UTI. He follows Dr. Mendez but has not seen him in some time. Discussed case with on-call Urology physician who recommended discharge with Connor catheter, continue Flomax, and follow up with them in 1-2 weeks (closer to 2 weeks) for further management; no need to see patient in hospital given resolution of symptoms after Connor placed on 10/05. Per Urology rec, continue Connor at discharge Continue Flomax at discharge Will stop levsin F/u with Urology in 1-2 weeks labs to be drawn later this week Discharge today likely home with PT/OT with recent surgery (2) KEYSHA (acute kidney injury): Code(s): N17.9 - Acute kidney failure, unspecified Status: Acute Assessment and Plan: Cr 1.90 on arrival; today it is 1.20 after Connor insertion. Given clinical course during stya, this now appears this is likely due to retention s/p surgery versus now less likely secondary to dehydration, hypovolemia Continue treatment as noted above BMP later this week F/u with Urology and PCP Continue home lisinopril and hctz/triamterene after discharge (3) BPH (benign prostatic hyperplasia): Code(s): N40.0 - Benign prostatic hyperplasia without lower urinary tract symptoms Status: Acute Assessment and Plan: Patient reports occasionally seeing Dr. Mendez as an outpatient every year or so for monitoring PSA. He has not seen him since last year. PSA 10.3 this stay. Severely enlarged prostate note on CT scan. Connor in place and draining Follow up with Urology as outpatient as noted above (4) Pre-syncope: Code(s): R55 - Syncope and collapse Status: Acute Assessment and Plan: Possible vagal episode with urinary retention vs less likely dehydration/hypovolemia. Sugars are reasonable. Tele was grossly unremarkable during stay. BP now elevated likely from holding home meds f/u with PCP and Urology (5) Type 2 diabetes mellitus with diabetic autonomic neuropathy, with long-term current use of insulin: Code(s): E11.43 - Type 2 diabetes mellitus with diabetic autonomic (poly)neuropathy; Z79.4 - joint terminal attack controller (current) use of insulin Status: Acute Assessment and Plan: BGL seems well controlled. Monitor implanted device glucose checks ACHS, hypoglycemia protocol, diabetic diet during stay F/u with PCP (6) Hypothyroid: Code(s): E03.9 - Hypothyroidism, unspecified Status: Acute Assessment and Plan: TSH WNL Continue home levothyroxine (7) S/P ORIF (open reduction internal fixation) fracture: Code(s): Z98.890 - Other specified postprocedural states; Z87.81 - Personal history of (healed) traumatic fracture Status: Acute Assessment and Plan: Patient had follow up with Dr. Camargo on 10/03 but was sent to ED from his office given his symptoms. Continue with pain control F/u with Dr. Camargo as outpatient Family requesting HH; CC following (8) Essential (primary) hypertension: Code(s): I10 - Essential (primary) hypertension Status: Acute Assessment and Plan: BP elevated into 160s sys most recently likely from holding home me
[2020-10-06 12:08] LABS: Glucose Point of Care 98 (65-105)
--- NOTE | 2020-10-17 08:41 | PC.NURSE ---
contaminated specimen
== END 2020-10-06 13:12 | disposition home health service (06) | DRG 726 ==
LOC: ANHED 12:45 → ANH3MED 13:05
PROVIDERS: Nurse Practitioner; Physician Assistant; Admitting Provider Family Medicine; Emergency Provider Emergency Medicine; PCP Family Medicine; Visit Provider Family Medicine
DX: N40.1 Benign prostatic hyperplasia with lower urinary tract symptoms (principal); N17.9 Acute kidney failure, unspecified; R33.8 Other retention of urine; R55 Syncope and collapse; E11.43 Type 2 diabetes mellitus with diabetic autonomic (poly)neuropathy; E03.9 Hypothyroidism, unspecified; E78.2 Mixed hyperlipidemia; I10 Essential (primary) hypertension; M19.90 Unspecified osteoarthritis, unspecified site; Z87.81 Personal history of (healed) traumatic fracture; Z79.4 Long term (current) use of insulin; Z98.890 Other specified postprocedural states; Z87.891 Personal history of nicotine dependence; Z90.49 Acquired absence of other specified parts of digestive tract; R30.0 Dysuria
CPT/HCPCS: 36415; 71046; 74176; 80048; 80053; 81003; 82948; 83735; 84153; 84443; 85025; 85027; 87086; 93005; 96361; 97161; 97165; 97535; 99285; A9270; G0378; J0360; J7030

== ENCOUNTER 2020-10-09 13:29 | Outpatient (NON) | payer MEDICARE, SELFPAY ==
[2020-10-09 15:02] LABS: Anion Gap 7 mmol/L (8-16); Blood Urea Nitrogen 38 mg/dL (9-20); Calcium 9.2 mg/dL (8.4-10.2); Carbon Dioxide 31 mmol/L (22-30); Chloride 98 mmol/L (98-107); Estimated Glomerular Filt Rate 50; Glucose 102 mg/dL (75-110); Sodium 136 mmol/L (137-145)
== END 2020-10-09 13:30 ==
LOC: HOME HLTH 13:36
PROVIDERS: Physician Assistant; PCP Family Medicine; Visit Provider Family Medicine
DX: N40.0 Benign prostatic hyperplasia without lower urinary tract symptoms (principal); N17.9 Acute kidney failure, unspecified; R33.9 Retention of urine, unspecified; I12.9 Hypertensive chronic kidney disease with stage 1 through stage 4 chronic kidney disease, or unspecified chronic kidney disease; E11.22 Type 2 diabetes mellitus with diabetic chronic kidney disease; N18.30 Chronic kidney disease, stage 3 unspecified
CPT/HCPCS: 80048

== ENCOUNTER 2023-02-25 15:26 | Emergency (ER) | payer MEDICARE, SELFPAY ==
[2023-02-25] VITALS (9 sets, daily range): BP systolic 172–188; BP diastolic 82–97; PULSE 84–94; RESP 15–22; TEMP 36.7; O2SAT 95–100
--- NOTE | ~2023-02-25 | XR_ITS ---
EXAMINATION: XR chest 2V DATE: 02/25/2023 16:14 INDICATION: Palpitations. Arrhythmia. TECHNIQUE: Frontal and lateral views of the chest were obtained. COMPARISON: Chest 2 views 10/03/2020 FINDINGS: The chest demonstrates clear lungs without pneumonia, pleural effusion, or pneumothorax. Th e heart size is normal. IMPRESSION: 1. No acute cardiopulmonary disease. Reviewed, dictated and finalized at location A.
--- NOTE | 2023-02-25 15:29 | ECG_ITS ---
Measurements Intervals [place] Rate: 94 P: 50 HI: 144 QRS: -34 QRSD: 141 T: 22 QT: 375 QTc: 470 Interpretive Statements SINUS RHYTHM VENTRICULAR PREMATURE COMPLEXES LEFT AXIS DEVIATION RIGHT BUNDLE BRANCH BLOCK POSSIBLE LEFT VENTRICULAR HYPERTROPHY COMPARED TO ECG 10/03/2020 09:41:37 ABNORMAL ECG LEFT-AXIS DEVIATION NOW PRESENT Electronically Signed On 02-25-2023 15:42:00 CDT by Henrique Meehan D.O.
[2023-02-25 16:10] LABS: Basophils Absolute Auto 0.1 K/mm3 (0.0-0.1); Basophils Percent Auto 0.8 % (0.2-1.2); Eosinophils Absolute Auto 0.1 K/mm3 (0-0.3); Eosinophils Percent Auto 1.4 % (0-4.4); Hemoglobin 13.3 g/dL (14.0-18.0); Immature Granulocyte Absolute 0.02 K/mm3 (0.00-0.031); Immature Granulocyte Percent A 0.3 % (0-0.5); Lymphocytes Absolute Auto 1.61 K/mm3 (0.9-3.2); Lymphocytes Percent Auto 25.3 % (18.3-44.2); Mean Corpuscular HGB Conc 33.3 g/dl (32-36); Mean Corpuscular Hemoglobin 28.9 pg (26-34); Mean Corpuscular Volume 86.8 fl (80-100); Mean Platelet Volume 9.7 fl (7.4-10.4); Monocytes Absolute Auto 0.8 K/mm3 (0.1-0.6); Monocytes Percent Auto 11.9 % (2.6-8.5); Neutrophils Absolute Auto 3.8 K/mm3 (1.3-6.7); Neutrophils Percent Auto 60.3 % (45.5-73.1); Platelet Count Result 177 k/mm3 (150-375); Red Blood Count 4.61 M/mm3 (4.6-6.20); Red Cell Distribution Width 13.9 % (11.5-14.5); White Blood Count 6.4 K/mm3 (4.5-10.0)
[2023-02-25 16:22] LABS: Partial Thromboplastin Time 30.6 SECONDS (22.3-36.8); Prothrombin Time 13.7 Seconds (11.1-14.7)
[2023-02-25 16:26] LABS: Alanine Aminotransferase 30 U/L (6-50); Albumin Level 3.9 g/dL (3.5-5.1); Alkaline Phosphatase 48 U/L (38-126); Anion Gap 7 mmol/L (8-16); Aspartate Amino Transferase 34 U/L (17-59); Bilirubin,Total 0.4 mg/dL (0.2-1.3); Blood Urea Nitrogen 23 mg/dL (9-20); Calcium 9.6 mg/dL (8.4-10.2); Carbon Dioxide 28 mmol/L (22-30); Chloride 101 mmol/L (98-107); Estimated CRCL calculation 63 ml/min; Estimated Glomerular Filt Rate > 60; Glucose 156 mg/dL (65-110); Lipase 61 U/L (23-300); Potassium 3.6 mmol/L (3.4-5.0); Sodium 136 mmol/L (137-145)
[2023-02-25 16:37] LABS: Troponin I < 0.012 ng/mL (0.000-0.034)
--- NOTE | 2023-02-25 16:39 | ED.ARRPALP ---
HPI - Arrhythmia/Palpitations General Chief Complaint: Arrhythmia/Palpitations Stated Complaint: Irregular heartbeat Time Seen by Provider: 02/25/23 15:54 History of Present Illness HPI narrative: Patient is a 72-year-old male who presents ER with reports of heart palpitations. Patient went to donate platelets and was told that his heart rate was irregular. He has been having no skipped beats or lightheadedness. No chest pain or chest pressure. No shortness of breath. No history of irregular heartbeat. Denies any increased caffeine usage. No additional concerns. Related Data Home Medications Medication Instructions Recorded Confirmed aspirin 81 mg tablet,delayed 81 mg PO BID 07/16/19 04/05/22 release (Adult Low Dose Aspirin) insulin lispro 100 unit/mL 1 sliding scale dose subcut 01/25/20 04/05/22 subcutaneous solution (Humalog USEASDIRECTD U-100 Insulin) multivitamin 1 tablet PO DAILY 01/25/20 04/05/22 fenofibrate 160 mg tablet 160 mg PO DAILY 07/01/20 04/05/22 finasteride 5 mg tablet 5 mg PO DAILY 11/30/21 04/05/22 Allergies Allergy/AdvReac Type Severity Reaction Status Date / Time codeine Allergy Severe ANAPHALACTI Verified 02/25/23 15:54 C levofloxacin Allergy Severe ITCHING, Verified 02/25/23 15:54 THROAT CLOSING Tetanus Vaccines and Toxoid Allergy Intermediate Swelling Verified 02/25/23 15:54 TOBREX EYE DROP Allergy Unknown REDNESS, Uncoded 02/25/23 15:54 IRRITATION Review of Systems Review of Systems: All systems reviewed & are unremarkable except as noted in HPI and below Constitutional: Constitutional: Reports no additional constitutional complaints ENT: Reports system reviewed and no additional complaints, except as documented Cardiovascular: Cardiovascular: Reports no additional cardiovascular complaints Respiratory: Respiratory: Reports no additional respiratory complaints Gastrointestinal: Gastrointestinal: Reports no additional gastrointestinal complaints Musculoskeletal: Musculoskeletal: Reports no additional musculoskeletal complaints PMFSH Past Medical History Medical History KEYSHA (acute kidney injury) Alcohol use 2 drinks/month Arthritis Back pain BPH (benign prostatic hyperplasia) Closed displaced trimalleolar fracture of right ankle healed Cutaneous horn Diabetes Dysuria Former smoker Frequent urination Hemangioma of skin and subcutaneous tissue HLD (hyperlipidemia) Hypoglycemia Hypothyroid Insulin pump in place Pre-syncope Urinary retention UTI (urinary tract infection) Surgical History Surgical History H/O vasectomy History of appendectomy History of tonsillectomy S/P LASIK surgery S/P ORIF (open reduction internal fixation) fracture right ankle Family History Family History Father Diabetes mellitus Hypertension Family history of cardiovascular disease Malignant neoplasm of prostate Mother Hypertension Family history of kidney disease Grandparent Malignant neoplasm of prostate Other Family history of elevated blood lipids Family history of malignant neoplasm of kidney Social History Social History (Updated 04/05/22 @ 15:31 by Blessing Keita MA) Social History: the patient stated that he smoked from the age of [age]. The patient stated he quit drinking at that time as well. The patient had several jobs. 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 He lives with his . His is the 1st durable power of civil rights attorney and then he lists his kids as well. He has 2 children. The patient used to smoke a pack a cigarettes a day but then quit when he was in his 30s. The patient desires to be a full code. Smoking packs per day: 1 Smoking cigarettes per day: 20.0 Years smoked: 14 Smoking pack-years: 14.00 Smoking status: Former smoker
[2023-02-25 17:14] LABS: Magnesium 1.6 mg/dL (1.6-2.3)
== END 2023-02-25 17:50 | disposition home or self-care (01) ==
PROVIDERS: Emergency Provider Emergency Medicine; PCP Family Medicine
DX: I49.3 Ventricular premature depolarization (principal); E11.9 Type 2 diabetes mellitus without complications; E78.5 Hyperlipidemia, unspecified; E03.9 Hypothyroidism, unspecified; N40.0 Benign prostatic hyperplasia without lower urinary tract symptoms; M19.90 Unspecified osteoarthritis, unspecified site; Z96.41 Presence of insulin pump (external) (internal); Z87.440 Personal history of urinary (tract) infections; Z87.891 Personal history of nicotine dependence; Z79.82 Long term (current) use of aspirin; Z79.4 Long term (current) use of insulin
CPT/HCPCS: 36415; 71046; 80053; 83690; 83735; 84484; 85025; 85610; 85730; 93005; 99284